=== PATIENT | female | born 1935 | race Caucasian/White ===

== ENCOUNTER 2018-06-04 23:33 | Inpatient (IN) ==
[2018-06-05] MEDS ORDERED: ASPIRIN CHEW 324 MG PO STA (00:46)
[2018-06-05] MEDS ORDERED: ONDANSETRON INJ 2 MG/ML 2 ML VIAL IV STA (00:46)
[2018-06-05] MEDS ORDERED: METOPROLOL TARTRATE 1 MG/ML VIAL IV PRN (00:47)
[2018-06-05 01:32] LABS: Basophils # (auto) 0.02 K/uL (0-0.2); Basophils % (auto) 0.2 %; Eosinophils # (auto) 0.03 K/uL (0-0.5); Eosinophils % (auto) 0.3 %; Hematocrit (blood only) 39.1 % (37-47); Hemoglobin 12.2 g/dL (12.0-16.0); Immature Granulocytes # (auto) 0.01 K/uL (0.00-0.02); Immature Granulocytes % (auto) 0.1 %; Lymphocytes % (auto) 7.8 %; Mean Corpuscular Hgb Conc 31.2 g/dL (32-36); Mean Corpuscular Volume 93.5 fL (80-100); Mean Platelet Volume 10.7 fL (7.4-10.4); Monocytes # (auto) 0.44 K/uL (0.11-0.59); Monocytes % (auto) 4.9 %; Neutrophils % (auto) 86.7 %; Platelet Count 175 K/uL (130-400); RDW Coefficient of Variation 14.4 % (11.5-14.5); Red Blood Count 4.18 M/uL (4.2-5.4)
[2018-06-05 01:40] LABS: INR 2.2 (0.9-1.1); Partial Thromboplastin Ratio 1.2; Partial Thromboplastin Time 30.6 Seconds (21.0-31.0); Prothrombin Time 20.8 Seconds (9.0-12.0)
[2018-06-05 01:50] LABS: Albumin Level 3.6 gm/dl (3.4-5.0); BUN Creatinine Ratio 12.2 (10-20); Calcium 8.9 mg/dl (8.5-10.1); Creatinine Clr Calc Pharmacy 29.8 ml/min; Est GFR (African American) 47.6; Est GFR (Non-African American) 41.1; Potassium 3.6 mmol/L (3.5-5.1)
[2018-06-05 01:55] LABS: Albumin Globulin Ratio 0.9 (0.9-2); Globulin 3.8 gm/dl (2.5-4.0); Total Protein 7.4 gm/dl (6.4-8.2); Troponin I 0.018 ng/ml (0-0.045)
[2018-06-05] MEDS ORDERED: POTASSIUM CHLORIDE 20 MEQ TABCR PO STA (03:26)
[2018-06-05] MEDS ORDERED: POTASSIUM CHLORIDE 10 MEQ TABCR PO ONE (03:31)
[2018-06-05] MEDS ORDERED: METOPROLOL TARTRATE 50 MG TAB PO SCH (03:50)
[2018-06-05 04:02] LABS: Magnesium 2.3 mg/dl (1.8-2.4)
--- NOTE | 2018-06-05 04:36 | History & Physical Report ---
Date of Service June 05, 2018 Assessment & Plan (1) Epigastric abdominal pain: Rule out cholecystitis with prominent gallbladder description on initial CT read Rule out UTI with bladder wall thickening finding on initial CT read Rapid A. 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 fib Facilitate home beta-roman, may need titration Gallbladder ultrasound RE rule out cholecystitis Check UA TTE RE pericardial effusion on CT Further management pending above workup results. Check hemoglobin A1c DVT prophylaxis. SCDs while Coumadin on hold if INR less than 2 Full code Patient's requesting for updates from providers. Mr. Adebayo Casas, contact #[phone]. History of Present Illness Chief Complaint: Abdominal pain Primary Care Provider: Delia Marquez, History obtained from patient, family, and records. Medical history significant for SSS sp PPM on Coumadin, chronic diastolic heart failure EF 50-54% TTE 2017, hypertension, hyperlipidemia, GERD, mood disorder, CRI baseline creatinine 1.2-1.3. Recent confinement April 2017 under Cardiology service for pacemaker placement for sick sinus syndrome. Patient noted achy epigastric discomfort with nausea last night. No emesis, good bowel movement. Patient denies dysuria symptoms. Patient denies chest pain. Usual SOB on exertion symptoms. At the ER, patient noted to be in rapid atrial flutter. Patient given IV Metoprolol at the ER. 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 Allergies Allergy/AdvReac Type Severity Reaction Status Date / Time Sulfa (Sulfonamide Allergy Mild HIVES Verified 06/05/18 03:41 Antibiotics) Home Medications Home Medications Medication Instructions Recorded Confirmed Type alendronate [Fosamax] 70 mg PO WK 06/05/18 06/05/18 History atorvastatin 20 mg PO DAILY 06/05/18 06/05/18 History calcium carbonate [Calcium 600] 600 mg PO DAILY 06/05/18 06/05/18 History cholecalciferol (vitamin D3) 2,000 unit PO DAILY 06/05/18 06/05/18 History [Vitamin D3] furosemide 40 mg PO BID 06/05/18 06/05/18 History levothyroxine 25 mcg PO 4XWK 06/05/18 06/05/18 History levothyroxine 50 mcg PO 3XWK 06/05/18 06/05/18 History liothyronine 5 mcg PO BID 06/05/18 06/05/18 History lisinopril 20 mg PO DAILY 06/05/18 06/05/18 History metoprolol tartrate 50 mg PO QPM 06/05/18 06/05/18 History metoprolol tartrate 75 mg PO QAM 06/05/18 06/05/18 History omeprazole 20 mg PO DAILY 06/05/18 06/05/18 History sertraline 25 mg PO DAILY 06/05/18 06/05/18 History warfarin 2.5 mg PO 4XWK 06/05/18 06/05/18 History warfarin [Coumadin] 5 mg PO 3XWK 06/05/18 06/05/18 History Past Med/Surg History Medical History Tachy-césar syndrome Atrial fibrillation and flutter Family History Other Family history non-contributory Social History Current Living Situation: Spouse Other Information That Helps Us Care for You: No Feels Safe at Home: Yes Smoking Status: Never smoker Hx Alcohol Use: Yes Alcohol type: wine Alcohol Intake Frequency: a few times a month Hx Substance Use: No Beliefs That Will Affect Care: None Communication Ability: Effective [place] Operator Required: No Review of Systems As per HPI, all 10 systems reviewed, all other ROS negative Physical Exam 2 Vital Signs (Past 24 Hours): Last Vital Signs Temp 36.5 C 06/04/18 23:51 Pulse 108 H 06/05/18 04:29 Resp 18 06/05/18 04:29 BP 140/97 06/05/18 04:29 Pulse Ox 93 06/05/18 04:29 Physical Exam: GENERAL: Comfortable slightly anxious, tremulous, obese no respiratory distress SKIN: Normal color, warm HEENT: [place] palpebral conjunctivae, no ptosis, dry buccal mucosa NECK : Supple, short neck, no tenderness CHEST : Decreased breath sounds , no tenderness HEART : Tachycardic, systolic murmur ABDOMEN: Some distention, epigastric tenderness EXTREMITIES : min LE swelling, no LE tenderness, no other conspicuous deformities noted NEUROLOGIC : Coherent but slightly hard of hearing, no facial asymmetry, chronic rest tremors Results & Data Laboratory Results Laboratory Results WBC 9.00 K/uL (4.8-10.8) 06/05/18 01:20 RBC 4.18 M/uL (4.2-5.4) L 06/05/18 01:20 Hgb 12.2 g/dL (12.0-16.0) 06/05/18 01:20 Hct 39.1 % (37-47) 06/05/18 01:20 MCV 93.5 fL (80-100) 06/05/18 01:20 MCH 29.2 pg (25-34) 06/05/18 01:20 MCHC 31.2 g/dL (32-36) L 06/05/18 01:20 RDW Std Deviation 49.0 fL (36.4-46.3) H 06/05/18 01:20 RDW [place] 14.4 % (11.5-14.5) 06/05/18 01:20 Plt Count 175 K/uL (130-400) 06/05/18 01:20 MPV 10.7 fL (7.4-10.4) H 06/05/18 01:20 Immature Gran % (Auto) 0.1 % 06/05/18 01:20 Neut % (Auto) 86.7 % 06/05/18 01:20 Lymph % (Auto) 7.8 % 06/05/18 01:20 [place] % (Auto) 4.9 % 06/05/18 01:20 Eos % (Auto) 0.3 % 06/05/18 01:20 Baso % (Auto) 0.2 % 06/05/18 01:20 Immature Gran # (Auto) 0.01 K/uL (0.00-0.02) 06/05/18 01:20 Neut # (Auto) 7.80 K/uL (1.4-6.5) H 06/05/18 01:20 Lymph # (Auto) 0.70 K/uL (1.2-3.4) L 06/05/18 01:20 [place] # (Auto) 0.44 K/uL (0.11-0.59) 06/05/18 01:20 Eos # (Auto) 0.03 K/uL (0-0.5) 06/05/18 01:20 Baso # (Auto) 0.02 K/uL (0-0.2) 06/05/18 01:20 PT 20.8 Seconds (9.0-12.0) H 06/05/18 01:20 INR 2.2 (0.9-1.1) H 06/05/18 01:20 APTT 30.6 Seconds (21.0-31.0) 06/05/18 01:20 PTT Ratio 1.2 06/05/18 01:20 Sodium 137 mmol/L (136-145) 06/05/18 01:20 Potassium 3.6 mmol/L (3.5-5.1) 06/05/18 01:20 Chloride 98 mmol/L (98-107) 06/05/18 01:20 Carbon Dioxide 32 mmol/L (21-32) 06/05/18 01:20 Anion Gap 7.0 (3-11) 06/05/18 01:20 BUN 15 mg/dl (7-18) 06/05/18 01:20 Creatinine 1.21 mg/dl (0.6-1.2) H 06/05/18 01:20 Est Cr Clr Drug Dosing 29.8 ml/min 06/05/18 01:20 Est GFR ( Amer) 47.6 06/05/18 01:20 Est GFR (Non-Af Amer) 41.1 06/05/18 01:20 BUN/Creatinine Ratio 12.2 (10-20) 06/05/18 01:20 Glucose 181 mg/dl (70-99) H 06/05/18 01:20 Calcium 8.9 mg/dl (8.5-10.1) 06/05/18 01:20 Magnesium 2.3 mg/dl (1.8-2.4) 06/05/18 01:20 Total Bilirubin 2.0 mg/dl (0.2-1) H 06/05/18 01:20 AST 86 U/L (15-37) H 06/05/18 01:20 ALT 39 U/L (12-78) 06/05/18 01:20 Alkaline Phosphatase 86 U/L (45-117) 06/05/18 01:20 Troponin I 0.018 ng/ml (0-0.045) 06/05/18 01:20 Total Protein 7.4 gm/dl (6.4-8.2) 06/05/18 01:20 Albumin 3.6 gm/dl (3.4-5.0) 06/05/18 01:20 Globulin 3.8 gm/dl (2.5-4.0) 06/05/18 01:20 Albumin/Globulin Ratio 0.9 (0.9-2) 06/05/18 01:20 Lipase 181 U/L (73-393) 06/05/18 01:20 TSH 0.936 uIu/ml (0.300-4.500) 06/05/18 01:20 Diagnostic Findings Chest x-ray as per my interpretation: Cardiomegaly EKG as per my interpretation : Rate 115, atrial flutter, LAD, LAFB, ST depression lateral leads CT abdomen pelvis initial read: Small left pleural effusion, atelectasis, small pericardial effusion, cardiomegaly. Posterior hernia appears to be chronic but metallic type. Prominent gallbladder. No radiopaque stones. Fatty infiltration of the pancreas. Multiple cysts mid pole of the left kidney. Bladder wall thickening.
[2018-06-05] MEDS ORDERED: METOPROLOL TARTRATE 1 MG/ML VIAL IV STA (05:56)
[2018-06-05] MEDS ORDERED: ACETAMINOPHEN 325 MG TAB PO PRN ×2 (05:59)
[2018-06-05] MEDS ORDERED: TRAMADOL HCL 50 MG TABLET PO PRN (05:59)
[2018-06-05] MEDS ORDERED: PROCHLORPERAZINE 5 MG in SYRINGE 4 ML IV PRN (05:59)
[2018-06-05] MEDS ORDERED: NITROGLYCERIN SL 0.4 MG/TAB TAB SL PRN (05:59)
[2018-06-05] MEDS ORDERED: LORazepam 0.25 MG/0.5 ML VIAL IV PRN (05:59)
[2018-06-05] MEDS ORDERED: HYDROmorphone INJ 0.5 MG/0.5 ML SYR IV PRN (05:59)
[2018-06-05] MEDS ORDERED: NSS + 20MEQ KCL 20 MEQ/1,000 ML BAG IV SCH (06:15)
[2018-06-05] MEDS ORDERED: LEVOTHYROXINE SODIUM 50 MCG TABLET PO SCH (06:30)
--- NOTE | 2018-06-05 06:39 | XRay Report ---
XR chest 1V portable HISTORY: 83 years-old Female Chest Pain acute atypical chest pain COMPARISON: CT abdomen and pelvis of same day, chest radiograph 06/13/2012 TECHNIQUE: Portable AP view of the chest FINDINGS: Cardiac silhouette is moderately enlarged. Single lead left subclavian pacer is noted overlying the e xpected location of the right atrium. Calcification the thoracic aortic arch. No pneumothorax or over t pulmonary edema. Small left pleural effusion with left basilar airspace opacities. Moderate sized h iatal hernia. Degenerative changes of the shoulders and spine. IMPRESSION: 1. Moderate cardiomegaly without overt pulmonary edema. 2. Small left pleural effusion with left basilar opacities favoring atelectasis with pneumonitis felt to be less likely. 3. Moderate sized hiatal hernia. The above report was generated using voice recognition software. It may contain grammatical, syntax o r spelling errors. Electronically signed by: Yfn Key M.D. 06/05/2018 6:37 AM
[2018-06-05 06:45] LABS: Estimated Average Glucose 134 mg/dl
--- NOTE | 2018-06-05 07:14 | Emergency Department Note ---
Entered by Kodak Mayer acting as a scribe for History of Present Illness General Chief complaint: Illness Source: patient History of Present Illness Provider complaint: Abdominal pain Onset (ago): hour(s) (This morning) Location: abdomen Radiation: non-radiation Pain Consistency: + now resolved Relieved By: + none Exacerbated By: + none Associated symptoms: + loss of appetite; no nausea/vomiting The patient is a 83 year old female who presents to the Emergency Room with complaints of epigastric abdominal pain that started this morning but has since resolved. She states the pain was present until she was in the ambulance where she received oxygen. She is not normally on any oxygen at baseline. Throughout the day the pain has caused her to lose her appetite but she denies any vomiting. She does have a history of Afib/flutter for which she takes Warfarin. She also takes Metoprolol and has had her dosage increased recently from 1 pill every morning and night to 1.5 pills BID. Home Medications Home Medications Medication Instructions Recorded Confirmed Type alendronate [Fosamax] 70 mg PO WK 06/05/18 06/05/18 History atorvastatin 20 mg PO DAILY 06/05/18 06/05/18 History calcium carbonate [Calcium 600] 600 mg PO DAILY 06/05/18 06/05/18 History cholecalciferol (vitamin D3) 2,000 unit PO DAILY 06/05/18 06/05/18 History [Vitamin D3] furosemide 40 mg PO BID 06/05/18 06/05/18 History levothyroxine 25 mcg PO 4XWK 06/05/18 06/05/18 History levothyroxine 50 mcg PO 3XWK 06/05/18 06/05/18 History liothyronine 5 mcg PO BID 06/05/18 06/05/18 History lisinopril 20 mg PO DAILY 06/05/18 06/05/18 History metoprolol tartrate 50 mg PO QPM 06/05/18 06/05/18 History metoprolol tartrate 75 mg PO QAM 06/05/18 06/05/18 History omeprazole 20 mg PO DAILY 06/05/18 06/05/18 History sertraline 25 mg PO DAILY 06/05/18 06/05/18 History warfarin 2.5 mg PO 4XWK 06/05/18 06/05/18 History warfarin [Coumadin] 5 mg PO 3XWK 06/05/18 06/05/18 History Allergies Allergy/AdvReac Type Severity Reaction Status Date / Time Sulfa (Sulfonamide Allergy Mild HIVES Verified 06/05/18 03:41 Antibiotics) Past Med/Surg History Medical History Tachy-césar syndrome Atrial fibrillation and flutter Family History Other Family history non-contributory Social History Current Living Situation: Spouse Other Information That Helps Us Care for You: No Feels Safe at Home: Yes Smoking Status: Never smoker Hx Alcohol Use: Yes Alcohol type: wine Alcohol Intake Frequency: a few times a month Hx Substance Use: No Beliefs That Will Affect Care: None Communication Ability: Effective [place] Agent Required: No Review of Systems See HPI for pertinent positives & negatives. and A total of 10 systems reviewed and were otherwise negative Physical Exam Vital Signs Vital Signs - 24 hr 06/04/18 23:51 06/05/18 00:54 06/05/18 01:23 Temperature 36.5 C Temperature Source Axillary Sepsis Recent Fever Within 48 Hours No Sepsis New/Unexplained Change in Mental Status No Sepsis Action Taken by Nursing No Action Required Pulse Rate 127 H 104 H Pulse Rate [Right Finger] 103 H Pulse Rhythm Pulse Rhythm [Right Finger] Pulse Strength [Right Finger] Respiratory Rate 31 H 22 Respiratory Effort / Characteristics Respiratory Depth Normal Respiratory Pattern Regular Blood Pressure 132/98 132/68 Blood Pressure [Left Arm] 131/88 Blood Pressure Mean 109 Blood Pressure Mean [Left Arm] 102 Blood Pressure Position [Left Arm] Pulse Oximetry 98 93 Oxygen Delivery Method Room Air 06/05/18 02:00 06/05/18 02:38 06/05/18 03:37 Temperature Temperature Source Sepsis Recent Fever Within 48 Hours Sepsis New/Unexplained Change in Mental Status Sepsis Action Taken by Nursing Pulse Rate 107 H Pulse Rate [Right Finger] 92 H 99 H 101 H Pulse Rhythm Regular Pulse Rhythm [Right Finger] Pulse Strength [Right Finger] Respiratory Rate 19 19 18 Respiratory Effort / Characteristics Respiratory Depth Respiratory Pattern Blood Pressure Blood Pressure [Left Arm] 115/72 128/86 151/97 H Blood Pressure Mean Blood Pressure Mean [Left Arm] 86 100 115 Blood Pressure Position [Left Arm] Pulse Oximetry 98 99 100 Oxygen Delivery Method Room Air Room Air 06/05/18 04:29 06/05/18 05:41 Temperature 36.9 C Temperature Source Oral Sepsis Recent Fever Within 48 Hours Sepsis New/Unexplained Change in Mental Status Sepsis Action Taken by Nursing Pulse Rate Pulse Rate [Right Finger] 108 H 111 H Pulse Rhythm Pulse Rhythm [Right Finger] Irregular Pulse Strength [Right Finger] Normal Respiratory Rate 18 22 Respiratory Effort / Characteristics Non-Labored Spontaneous SOB on Exertion Respiratory Depth Normal Respiratory Pattern Regular Blood Pressure Blood Pressure [Left Arm] 140/97 149/100 H Blood Pressure Mean Blood Pressure Mean [Left Arm] 111 116 Blood Pressure Position [Left Arm] Lying Pulse Oximetry 93 96 Oxygen Delivery Method Room Air Room Air Vital signs reviewed. General: Well-appearing 83 year old female, in no significant distress. HEENT: No scleral icterus, PERRLA, neck supple. Atraumatic. Cardiovascular: Tachycardic rate and irregular rhythm, no extra sounds. Pulmonary: Clear to auscultation bilaterally, normal work of breathing. Abdomen: Soft, nontender, nondistended, positive bowel sounds. Musculoskeletal: Atraumatic, no peripheral edema. Neurologic: Patient awake alert and oriented x 3, full strength in all 4 extremities. Facial muscles are symmetric Skin: Warm, dry, no rash Course 0038: Past medical records reviewed. The patient was evaluated in room A04B, and a complete history and physical examination were performed. 0323: I spoke to Dr. Hermilo Walsh about the patient's case and he is going to accept her for further evaluation. Consultations Consultation #1: I spoke to Dr. Hermilo Walsh about the patient 's case and he is going to accept her for further evaluation. Time: 03:23 Administered Medications Potassium Chloride/Sodium Chloride (Normal Saline W/20 Meq Kcl) 20 meq in 1, 000 mls @ 60 mls/hr IV .[id number] [facility] Stop: 07/05/18 06:14 Last Admin: 06/05/18 06:33 Dose: 60 mls/hr Levothyroxine Sodium (Synthroid) 50 mcg PO [id number] WILLA Stop: 07/05/18 06:29 Last Admin: 06/05/18 06:33 Dose: Not Given Discontinued Medications Aspirin (Aspirin) 324 mg PO NOW STA Stop: 06/05/18 00:47 Last Admin: 06/05/18 00:54 Dose: 324 mg Metoprolol Tartrate (Lopressor) 5 mg IV Q5M PRN PRN Reason: Tachycardia Stop: 07/05/18 00:46 Last Admin: 06/05/18 00:54 Dose: 5 mg Metoprolol Tartrate (Lopressor) 75 mg PO QAM WILLA Stop: 07/05/18 03:49 Last Admin: 06/05/18 04:31 Dose: 75 mg Metoprolol Tartrate (Lopressor) 2.5 mg IV NOW STA Stop: 06/05/18 05:57 Last Admin: 06/05/18 06:20 Dose: 2.5 mg Ondansetron HCl (Zofran) 4 mg IV NOW Stop: 06/05/18 00:47 Last Admin: 06/05/18 00:54 Dose: 4 mg Potassium Chloride (Klor-Con M20) 40 meq PO NOW STA Stop: 06/05/18 03:27 Last Admin: 06/05/18 03:35 Dose: 40 meq Potassium Chloride (Klor-Con M10) Confirm Administered Dose 40 meq PO .STBella Pictures-MED ONE Stop: 06/05/18 03:32 Last Admin: 06/05/18 03:35 Dose: Not Given Medical Decision Making Differential Diagnosis Differential diagnosis includes etiologies such as premature contractions, electrolyte abnormality, cardiac dysrhythmia, thyroid dysfunction, pulmonary embolism, infection, gastrointestinal, as well as others were entertained. Medical Records Attestation: I reviewed the patient's medical records. Home Medications Current Medication List: was personally reviewed by me Laboratory Data Attestation: I reviewed the patient's lab results. Result diagrams: 06/05/18 01:20 06/05/18 01:20 Lab Results 06/05/18 06/05/18 06/05/18 Range/Units 01:20 01:20 01:20 WBC 9.00 (4.8-10.8) K/uL RBC 4.18 L (4.2-5.4) M/uL Hgb 12.2 (12.0-16.0) g/dL Hct 39.1 (37-47) % MCV 93.5 (80-100) fL MCH 29.2 (25-34) pg MCHC 31.2 L (32-36) g/dL RDW Std Deviation 49.0 H (36.4-46.3) fL RDW [place] 14.4 (11.5-14.5) % Plt Count 175 (130-400) K/uL MPV 10.7 H (7.4-10.4) fL Immature Gran % (Auto) 0.1 % Neut % (Auto) 86.7 % Lymph % (Auto) 7.8 % [place] % (Auto) 4.9 % Eos % (Auto) 0.3 % Baso % (Auto) 0.2 % Immature Gran # (Auto) 0.01 (0.00-0.02) K/uL Neut # (Auto) 7.80 H (1.4-6.5) K/uL Lymph # (Auto) 0.70 L (1.2-3.4) K/uL [place] # (Auto) 0.44 (0.11-0.59) K/uL Eos # (Auto) 0.03 (0-0.5) K/uL Baso # (Auto) 0.02 (0-0.2) K/uL PT 20.8 H (9.0-12.0) Seconds INR 2.2 H (0.9-1.1) APTT 30.6 (21.0-31.0) Seconds PTT Ratio 1.2 Sodium 137 (136-145) mmol/L Potassium 3.6 (3.5-5.1) mmol/L Chloride 98 (98-107) mmol/L Carbon Dioxide 32 (21-32) mmol/L Anion Gap 7.0 (3-11) BUN 15 (7-18) mg/dl Creatinine 1.21 H (0.6-1.2) mg/dl Est Cr Clr Drug Dosing 29.8 ml/min Est GFR ( Amer) 47.6 Est GFR (Non-Af Amer) 41.1 BUN/Creatinine Ratio 12.2 (10-20) Glucose 181 H (70-99) mg/dl Estimat Average Glucose mg/dl Hemoglobin A1c (4.5-5.6) % Calcium 8.9 (8.5-10.1) mg/dl Magnesium 2.3 (1.8-2.4) mg/dl Total Bilirubin 2.0 H (0.2-1) mg/dl AST 86 H (15-37) U/L ALT 39 (12-78) U/L Alkaline Phosphatase 86 (45-117) U/L Troponin I 0.018 (0-0.045) ng/ml Total Protein 7.4 (6.4-8.2) gm/dl Albumin 3.6 (3.4-5.0) gm/dl Globulin 3.8 (2.5-4.0) gm/dl Albumin/Globulin Ratio 0.9 (0.9-2) Lipase 181 (73-393) U/L TSH 0.936 (0.300-4.500) uIu/ml 06/05/18 Range/Units 01:20 WBC (4.8-10.8) K/uL RBC (4.2-5.4) M/uL Hgb (12.0-16.0) g/dL Hct (37-47) % MCV (80-100) fL MCH (25-34) pg MCHC (32-36) g/dL RDW Std Deviation (36.4-46.3) fL RDW [place]eff [place] (11.5-14.5) % Plt Count (130-400) K/uL MPV (7.4-10.4) fL Immature Gran % (Auto) % Neut % (Auto) % Lymph % (Auto) % [place] % (Auto) % Eos % (Auto) % Baso % (Auto) % Immature Gran # (Auto) (0.00-0.02) K/uL Neut # (Auto) (1.4-6.5) K/uL Lymph # (Auto) (1.2-3.4) K/uL [place] # (Auto) (0.11-0.59) K/uL Eos # (Auto) (0-0.5) K/uL Baso # (Auto) (0-0.2) K/uL PT (9.0-12.0) Seconds INR (0.9-1.1) APTT (21.0-31.0) Seconds PTT Ratio Sodium (136-145) mmol/L Potassium (3.5-5.1) mmol/L Chloride (98-107) mmol/L Carbon Dioxide (21-32) mmol/L Anion Gap (3-11) BUN (7-18) mg/dl Creatinine (0.6-1.2) mg/dl Est Cr Clr Drug Dosing ml/min Est GFR ( Amer) Est GFR (Non-Af Amer) BUN/Creatinine Ratio (10-20) Glucose (70-99) mg/dl Estimat Average Glucose 134 mg/dl Hemoglobin A1c 6.3 H (4.5-5.6) % Calcium (8.5-10.1) mg/dl Magnesium (1.8-2.4) mg/dl Total Bilirubin (0.2-1) mg/dl AST (15-37) U/L ALT (12-78) U/L Alkaline Phosphatase (45-117) U/L Troponin I (0-0.045) ng/ml Total Protein (6.4-8.2) gm/dl Albumin (3.4-5.0) gm/dl Globulin (2.5-4.0) gm/dl Albumin/Globulin Ratio (0.9-2) Lipase (73-393) U/L TSH (0.300-4.500) uIu/ml Imaging Data Attestation: I personally reviewed and interpreted this imaging study as follows : My Impression: Xray Chest 2V: Pacemaker in place, no focal lung consolidation, no failure, large hiatal hernia noted. ECG Data Attestation: I personally reviewed and interpreted this ECG as follows: Indication: palpitations Rate (beats per minute): 114 Rhythm: atrial fibrillation (/Flutter) Findings: + other (Likely previous anterolateral infarct, QTc 476) and + left axis deviation; no acute ischemic change Blood Pressure Blood Pressure Findings: Elevated blood pressure Blood Pressure Disposition: further management by hospitalist [facility] Narrative This patient was evaluated and appeared to be in no significant distress. IV access was obtained and laboratory work was drawn. The patient was placed on the monitor car operator. Patient is found to be in atrial fibrillation, slightly tachycardic. I suspect the etiology of the patient's epigastric pain is cardiac related. Patient's troponin is 0.018. EKG reveals rapid atrial fibrillation 114 bpm. [address] is no ST change indicative of acute IA. She was given metoprolol 5 mg IV for rate control. She is also given aspirin 324 mg p.o. Given the patient's advanced age and cardiac risk factors, she will be evaluated by the hospitalist service for further management. Impression & Plan Epigastric abdominal pain, Atrial fibrillation, rapid Discharge Plan Visit Data *Final* Discharge Date/Time: 06/05/18 04:54 Chief Complaint: Illness Other Complaint: Nausea ED Provider: Jacqueline Rodriguez Discharge Problem: Epigastric abdominal pain, Atrial fibrillation, rapid Patient Disposition: Admitted As Inpatient Discharge Instructions Interventions: ED Discharge Assessment Last Done: 06/05/18 04:54 The scribe's documentation has been prepared under my direction and personally reviewed by me in its entirety. I confirm that the note above accurately reflects all work, treatment, procedures, and medical decision making performed by me.
--- NOTE | 2018-06-05 08:09 | CT Scan Report ---
CT abd pelvis wo con CLINICAL HISTORY: 83 years-old Female presenting with abd pain. TECHNIQUE: Multidetector CT of the abdomen and pelvis was performed without the use of intravenous co ntrast. IV contrast: None. A dose lowering technique was used consistent with the principles of ALARA (as low as reasonably achievable). COMPARISON: None. CT DOSE (mGy.cm): The estimated cumulative dose is 985.96 mGy.cm. FINDINGS: Network Engineering Advisor topogram: Single lead pacer lead to the right ventricular apex. Cardiomegaly. Lung bases: Bandlike opacities in the deep portions of the left lower lobe, likely passive atelectasi s in the setting of the small left pleural effusion, which is grossly simple appearing. Aortic valve and mitral annular calcification. Multichamber enlargement of the heart, which is primarily biatrial. Partially visualized pacer lead to the right ventricular apex. Small pericardial effusion. Liver: Normal morphology. Density borderline for hepatic steatosis. Biliary: No intrahepatic or extrahepatic biliary ductal dilatation. Physiologic distention of the gal lbladder. Motion artifact in the upper abdomen degraded evaluation of the gallbladder wall. Allowing for this, there is suggestion of mild gallbladder wall thickening. No pericholecystic fluid or inflam matory change. No convincing evidence of tension. Pancreas: Moderate parenchymal atrophy. Spleen: Normal noncontrast appearance. Adrenal glands: Normal noncontrast appearance. Kidneys and ureters: Bilateral cortical thinning suggested. No nephrolithiasis or hydronephrosis. Mil d bilateral pelviectasis with suggestion of subtle urothelial thickening bilaterally. Nonspecific mil d perinephric fat infiltration. Ureters nondistended. Bladder: Circumferential bladder wall thickening. Pelvic organs: Normal noncontrast appearance. Calcification noted in the paraovarian and parauterine vasculature. Focus of calcification noted in the right ovary, likely degenerative in etiology. Bowel: Traction on the splenic flexure of the colon is evident with minimal involvement of the spleni c flexure in the large hiatal hernia. The appendix is normal and atrophic. No bowel obstruction. Larg e hiatal hernia as mentioned. Hyperdense material in the gastric lumen (series 3 image 41). No convin cing evidence of obstruction of the gastric outlet. Peritoneal cavity: No free fluid or intraperitoneal gas. Lymph nodes: No gross lymphadenopathy allowing for noncontrast technique. Vasculature: Atherosclerosis of the normal caliber abdominal aorta. Abdominal wall: Diastasis of the rectus abdominis. Musculoskeletal: Degenerative changes of the spine. Posttraumatic deformity of the bilateral superior and inferior pubic rami. Osteopenia. Compression deformity of L2 with less than 50% anterior vertebr al body height loss. IMPRESSION: 1. Large hiatal hernia. No evidence of gastric outlet obstruction, however, significant hyperdense m aterial in the gastric lumen may suggest the presence of a pharmacobezoar. 2. Physiologic distention of the gallbladder though possible wall thickening may be present. Motion artifact in the upper abdomen degrading evaluation. Consider right upper quadrant ultrasound if there is right upper quadrant pain. 3. Circumference of bladder wall thickening with subtle urothelial thickening in the upper tracts parks ggested. This raises concern for cystitis, most likely infectious. Correlate with urinalysis. 4. Compression fracture of L2, which is age-indeterminate. Correlate with point tenderness. 5. Small left pleural effusion with passive atelectasis. 6. Biatrial enlargement of the heart. 7. Small pericardial effusion. Electronically signed by: Griffin Davis M.D. 06/05/2018 8:08 AM
--- NOTE | 2018-06-05 08:43 | Ultrasound Report ---
US gallbladder HISTORY: 83 years-old Female abd pain acute right upper quadrant abdominal pain COMPARISON: CT abdomen and pelvis of same day TECHNIQUE: Multiple real-time sonographic images of the abdominal right upper quadrant were obtained assessing grayscale appearance and color flow FINDINGS: Limited study secondary to patient body habitus and patient inability to breath-hold during the study . Visualized pancreas is unremarkable. Liver imaging is no focal mass or intrahepatic biliary ductal di lation. Minimal shadowing cholelithiasis is noted along with mild gallbladder wall thickening measuri ng up to 4 mm. No pericholecystic fluid and the sonographic Marin sign was reported as negative. Com mon bile duct is normal, 5 mm. Imaged right kidney is unremarkable without hydronephrosis. IMPRESSION: 1. Cholelithiasis and mild gallbladder wall thickening is noted without pericholecystic fluid or posi tive sonographic Marin's sign. These findings are equivocal for acute cholecystitis. Correlation wit h clinical exam and laboratory analysis recommended. 2. No biliary ductal dilation. The above report was generated using voice recognition software. It may contain grammatical, syntax o r spelling errors. Electronically signed by: Yfn Key M.D. 06/05/2018 8:42 AM
[2018-06-05] MEDS: PANTOprazole 40 MG TAB PO SCH (09:05)
[2018-06-05] MEDS: SERTRALINE HCL 50 MG TABLET PO SCH (09:05)
[2018-06-05] MEDS: ATORVASTATIN 20 MG TAB PO SCH (09:05)
[2018-06-05] MEDS: LISINOPRIL 20 MG TAB PO SCH (09:05)
[2018-06-05] MEDS: LIOTHYRONINE SODIUM 5 MCG TAB PO SCH ×2 (09:06→20:16)
--- NOTE | 2018-06-05 16:36 | Hospitalist Progress Note ---
Date of Service June 05, 2018 Assessment & Plan (1) Hypoxia: She is therapeutic on warfarin and smaller risk for PE. She has serial negative troponins.Uncertain cause at this time. Cont oxygen supplementation now. (2) Epigastric abdominal pain: Clinically, the patient's abdominal pain resolved prior to arrival on the ER. I believe she was admitted for the RVR issue. She has been NPO all day but has not had a return of pain. UA sample has not been able to be collected. We are having to perform an in/out cath for sample.US results were reviewed with the general surgeon director of graduate admissions, and the clinical picture was not consistent with acute cholecystitis. She also had a finding on her CT of a possible bezoar , but denied any projectile vomiting. We decided to feed her and see if the pain returned. A diet was started and IVF stopped. UA sample pending. It is interesting that she felt better once the suppleental oxygen was placed on her face in the ambulance. She does have a h/o severe pulmonary hypertension. Possible etiologies include but are not limted to hypoxia 2/2 this, symptomatic atrial fibrillation with RVR, or symptomatic hiatal hernia. Still need to rule out UTI as above. Lipase is normal. (3) Atrial fibrillation, rapid: Afib with RVR. Pt has been tachy for a while now, not just acutely. She recently had an increase in her metoprolol as an outpatient as a result of this. Suspect a more chronic issue as no clear acute infection or other reason is present. Rate is more controlled today after reinstitution of the metoprolol 75mg PO BID. Troponin trended x 2 and was negative. TTE with some changes compared to prior TTE in 2017 and small pericardial effusion present. Cont to monitor. (4) Diastolic heart failure: chronic, euvolemic. Stop IVF and cont BID Lasix per home regimen. (5) HTN (hypertension): Controlled, cont Lisinopril 20mg PO daily (6) CKD (chronic kidney disease), stage III: at baseline. Cont to monitor periodically. (7) DVT prophylaxis: warfarin Full Code Dispo-cont to monitor on telemetry overnight. Subjective 83 yo F with one day of epigatric pain that was continuous. The pain was not better or worse with food Denies any pain today. Denies fevers ,UTI symptoms, chills, or other symptoms at this time. Physical Exam 2 Vital Signs (Past 24 Hours): Last Vital Signs Temp 36.6 C 06/05/18 15:59 Pulse 94 H 06/05/18 15:59 Resp 20 06/05/18 15:59 BP 132/85 06/05/18 15:59 Pulse Ox 99 06/05/18 15:59 GENERAL: NAD SKIN: warm and dry HEENT: MMM NECK : Supple, no tenderness CHEST : Decreased breath sounds , no tenderness HEART : Tachycardic, systolic murmur ABDOMEN: NTND, soft, +BS EXTREMITIES : no edema NEUROLOGIC : Coherent but slightly hard of hearing, no facial asymmetry, chronic rest tremors Results & Data Laboratory Results Short CBC 06/05/18 Range/Units 01:20 WBC 9.00 (4.8-10.8) K/uL Hgb 12.2 (12.0-16.0) g/dL Hct 39.1 (37-47) % Plt Count 175 (130-400) K/uL BMP 06/05/18 01:20 Sodium 137 Potassium 3.6 Chloride 98 Carbon Dioxide 32 BUN 15 Creatinine 1.21 H Glucose 181 H Calcium 8.9 Cardiac Enzymes 06/05/18 06/05/18 Range/Units 01:20 09:43 Troponin I 0.018 0.017 (0-0.045) ng/ml Liver Function 06/05/18 Range/Units 01:20 Total Bilirubin 2.0 H (0.2-1) mg/dl AST 86 H (15-37) U/L ALT 39 (12-78) U/L Alkaline Phosphatase 86 (45-117) U/L Albumin 3.6 (3.4-5.0) gm/dl Medications Administered Current Inpatient Medications Acetaminophen (Tylenol) 650 mg PO Q4H PRN PRN Reason: Pain or Fever Stop: 07/05/18 05:58 Acetaminophen (Tylenol) 325 mg PO Q6H PRN PRN Reason: Pain or Fever Stop: 07/05/18 05:58 Atorvastatin Calcium (Lipitor) 20 mg PO DAILY WILLA Stop: 07/05/18 08:59 Last Admin: 06/05/18 09:05 Dose: 20 mg Furosemide (Lasix) 40 mg PO [id number] WILLA Stop: 07/05/18 20:59 Last Admin: 06/05/18 20:15 Dose: 40 mg Hydromorphone HCl (Dilaudid) 0.5 mg IV Q3H PRN PRN Reason: Pain Stop: 06/19/18 05:58 Lorazepam (Ativan) 0.25 mg in 0.5 mls @ 0.5 mls/min IV Q4H PRN PRN Reason: Anxiety/Agitation Stop: 07/05/18 05:58 Levothyroxine Sodium (Synthroid) 50 mcg PO [id number]@0630 [facility] Stop: 07/05/18 06:29 Last Admin: 06/05/18 06:33 Dose: Not Given Levothyroxine Sodium (Synthroid) 25 mcg PO SuTuThSa@0630 [facility] Stop: 07/06/18 06:29 Liothyronine Sodium (Cytomel) 5 mcg PO BID [facility] Stop: 07/05/18 08:59 Last Admin: 06/05/18 20:16 Dose: 5 mcg Lisinopril (Zestril) 20 mg PO DAILY [facility] Stop: 07/05/18 08:59 Last Admin: 06/05/18 09:05 Dose: 20 mg Metoprolol Tartrate (Lopressor) 75 mg PO BID [facility] Stop: 07/05/18 20:59 Last Admin: 06/05/18 20:16 Dose: 75 mg Nitroglycerin (Nitrostat) 0.4 mg SL UD PRN PRN Reason: Chest Pain Stop: 07/05/18 05:58 Pantoprazole Sodium (Protonix) 40 mg PO DAILY [facility] Stop: 07/05/18 08:59 Last Admin: 06/05/18 09:05 Dose: 40 mg Sertraline HCl (Zoloft) 25 mg PO DAILY [facility] Stop: 07/05/18 08:59 Last Admin: 06/05/18 09:05 Dose: 25 mg Tramadol HCl (Ultram) 25 - 50 mg PO Q4H PRN PRN Reason: Pain Stop: 07/05/18 05:58 Warfarin Sodium (Coumadin) 2.5 mg PO [id number]@1600 [facility] Stop: 07/06/18 15:59 Warfarin Sodium (Coumadin) 5 mg PO [id number]@1600 [facility] Stop: 07/05/18 17:14 Last Admin: 06/05/18 17:25 Dose: 5 mg
[2018-06-05] MEDS ORDERED: WARFARIN SOD 5 MG TAB PO SCH (17:15)
[2018-06-05] MEDS: FUROSEMIDE 40 MG TAB PO SCH (20:15)
[2018-06-05] MEDS: METOPROLOL TARTRATE 25 MG TAB PO SCH (20:16)
[2018-06-06 04:09] LABS: Appearance Urine Clear (Clear); Bacteria Urine Automated Negative (Negative); Bilirubin Urine Negative (Negative); Color Urine Yellow; Epithelial Cell Urine Auto >30 /lpf (0-5); Glucose Urine UA Negative (Negative); Ketones Urine Negative (Negative); Leukocyte Esterase Urine 2+ (Negative); Nitrite Urine Negative (Negative); Protein Urine Negative (Negative); Specific Gravity Urine 1.008 (1.000-1.030); Urobilinogen Urine Negative (Negative)
[2018-06-06] MEDS ORDERED: LEVOTHYROXINE SODIUM 25 MCG TABLET PO SCH (06:30)
[2018-06-06 07:24] LABS: Basophils # (auto) 0.02 K/uL (0-0.2); Basophils % (auto) 0.3 %; Eosinophils # (auto) 0.12 K/uL (0-0.5); Hematocrit (blood only) 36.7 % (37-47); Hemoglobin 11.4 g/dL (12.0-16.0); Immature Granulocytes # (auto) 0.01 K/uL (0.00-0.02); Immature Granulocytes % (auto) 0.2 %; Lymphocytes # (auto) 1.07 K/uL (1.2-3.4); Mean Corpuscular Hgb Conc 31.1 g/dL (32-36); Mean Corpuscular Volume 94.6 fL (80-100); Mean Platelet Volume 10.5 fL (7.4-10.4); Monocytes # (auto) 0.42 K/uL (0.11-0.59); Monocytes % (auto) 7.1 %; Neutrophils # (auto) 4.29 K/uL (1.4-6.5); Neutrophils % (auto) 72.4 %; Platelet Count 143 K/uL (130-400); RDW Coefficient of Variation 14.6 % (11.5-14.5); Red Blood Count 3.88 M/uL (4.2-5.4); White Blood Count 5.93 K/uL (4.8-10.8)
[2018-06-06 07:25] LABS: INR 2.2 (0.9-1.1); Prothrombin Time 21.5 Seconds (9.0-12.0)
[2018-06-06 07:58] LABS: Albumin Level 3.4 gm/dl (3.4-5.0); BUN Creatinine Ratio 11.7 (10-20); Calcium 8.8 mg/dl (8.5-10.1); Creatinine Clr Calc Pharmacy 29.6 ml/min; Est GFR (African American) 47.6; Est GFR (Non-African American) 41.1; Potassium 4.1 mmol/L (3.5-5.1)
[2018-06-06 08:05] LABS: Globulin 3.4 gm/dl (2.5-4.0); Total Protein 6.8 gm/dl (6.4-8.2)
[2018-06-06] MEDS: ATORVASTATIN 20 MG TAB PO SCH (08:25)
[2018-06-06] MEDS: LISINOPRIL 20 MG TAB PO SCH (08:25)
[2018-06-06] MEDS: PANTOprazole 40 MG TAB PO SCH (08:25)
[2018-06-06] MEDS: METOPROLOL TARTRATE 25 MG TAB PO SCH (08:25)
[2018-06-06] MEDS: FUROSEMIDE 40 MG TAB PO SCH ×2 (08:26→16:52)
[2018-06-06] MEDS: SERTRALINE HCL 50 MG TABLET PO SCH (08:26)
[2018-06-06] MEDS: LIOTHYRONINE SODIUM 5 MCG TAB PO SCH (08:26)
[2018-06-06] MEDS ORDERED: WARFARIN SOD 2.5 MG TAB PO SCH (16:00)
--- NOTE | 2018-06-11 13:34 | Discharge Summary ---
Date of Service June 11, 2018 Admission HPI Per Admitting Provider History obtained from patient, family, and records. Medical history significant for SSS sp PPM on Coumadin, chronic diastolic heart failure EF 50-54% TTE 2017, hypertension, hyperlipidemia, GERD, mood disorder, CRI baseline creatinine 1.2-1.3. Recent confinement April 2017 under Cardiology service for pacemaker placement for sick sinus syndrome. Patient noted achy epigastric discomfort with nausea last night. No emesis, good bowel movement. Patient denies dysuria symptoms. Patient denies chest pain. Usual SOB on exertion symptoms. At the ER, patient noted to be in rapid atrial flutter. Patient given IV Metoprolol at the ER. 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 Admission Exam Per Admitting Provider GENERAL: Comfortable slightly anxious, tremulous, obese no respiratory distress SKIN: Normal color, warm HEENT: [place] palpebral conjunctivae, no ptosis, dry buccal mucosa NECK : Supple, short neck, no tenderness CHEST : Decreased breath sounds , no tenderness HEART : Tachycardic, systolic murmur ABDOMEN: Some distention, epigastric tenderness EXTREMITIES : min LE swelling, no LE tenderness, no other conspicuous deformities noted NEUROLOGIC : Coherent but slightly hard of hearing, no facial asymmetry, chronic rest tremors Principal Diagnosis Epigastric pain-resolved Hypoxia-resolved Atrial fibrillation Discharge Exam GENERAL: NAD SKIN: warm and dry HEENT: MMM NECK : Supple, no tenderness CHEST : Decreased breath sounds , no tenderness HEART : Tachycardic, systolic murmur ABDOMEN: NTND, soft, +BS EXTREMITIES : no edema NEUROLOGIC : Coherent but slightly hard of hearing, no facial asymmetry, chronic rest tremors Discharge Data Allergies Allergy/AdvReac Type Severity Reaction Status Date / Time Sulfa (Sulfonamide Allergy Mild HIVES Verified 06/05/18 03:41 Antibiotics) Consultations 06/05/18 03:17 ED Decision to Admit Stat Ordered Studies 06/05/18 04:26 CT abd pelvis wo con Urgent 06/05/18 05:59 US gallbladder Urgent Hospital Course (1) Hypoxia: (2) Epigastric abdominal pain: (3) Atrial fibrillation, rapid: (4) Diastolic heart failure: (5) HTN (hypertension): (6) CKD (chronic kidney disease), stage III: 83-year-old female presented to the ER via EMS for abdominal pain. This had reportedly been going on all day prior to arrival and improved when she received supplemental oxygen in the ambulance. She did not have any nausea or vomiting. In the ER she was afebrile pulse was 125, respiration rate 31, blood pressure 132/98 and she was 98% on room air. Respiration rate improved to normal range within a short time after arrival to the ER. Initially the patient 's epigastric pain was suspected to be cardiac related with uncontrolled ventricular rate in setting of atrial fibrillation. Her troponin was 0.018. EKG revealed rapid A. fib at 114 bpm. There was no significant ST changes to indicate acute IA. She was given metoprolol 5 mg IV for rate control was also given full dose aspirin. She was admitted to the hospitalist service for further workup. A CT scan of her abdomen and pelvis without contrast revealed a large hiatal hernia, no evidence of gastric outlet obstruction, however, there was a significant hyperdense material in the gastric lumen that may suggest the presence of a bezoar. Physiologic distention of the gallbladder was seen, though wall thickening was thought possible. Bladder wall thickening was seen with subtle urothelial thickening in the upper tracts concerning for cystitis. A urinalysis was obtained and was negative for infection, positive for contamination. Ultimately urine culture revealed 3 types of organisms present at all low counts that were probable skin melody. A gallbladder ultrasound was performed revealing cholelithiasis and mild gallbladder wall thickening, findings equivocal for acute cholecystitis. The case was discussed with the general surgery who suggested the patient try some solid food. She handled this well and without issue or return of abdominal pain. During her hospitalization she never spiked a fever or developed return of the abdominal pain. The question of the need for supplemental oxygen and the fact this made her feel better was somewhat of a mystery. She was noted to have severe pulmonary hypertension which may have contributed to transient hypoxia. Likewise symptomatic atrial fibrillation with RVR or symptomatic hiatal hernia may also have contributed temporarily. Ultimately she did not need to be discharged with oxygen. A two-step was done at time of discharge and proved this. Serial troponin were negative overnight. An echocardiogram was performed the following day revealing mild concentric LVH, mild global hypokinesis of the left ventricle with an ejection fraction 45-50%. This was discussed with the childcare director on-call who compared her current echo to the prior echo and saw no significant difference. At time of discharge she was mentating and ambulating at baseline and tolerating p.o. Symptoms had completely resolved and she was discharged in stable condition with close primary care follow-up. Total Time Total Time Spent Total Time Spent (In Minutes): 60 Total Time Includes: Examination of the Patient, Discharge Planning, Medication Reconciliation and Communication With Other Providers Discharge Plan Discharge Items Patient Disposition: Home - Home Health Services Reason For Visit: RAPID AF, ABD PAIN Discharge Diagnosis: Epigastric pain-resolved Hypoxia-resolved Atrial fibrillation Condition: Good Discharge Goals: Decrease discomfort Activity: Resume your previous activity Non-emergency contact: Primary Care Provider Call non-emergency contact if: you have any medication questions, your symptoms worsen, your pain is not controlled and you have a fever Diet: Heart Healthy Addtl Provider Instructions: Please take all medications as instructed on discharge list below. It is recommended that you follow-up with your primary care provider within 1 week of discharge. You were noted to have a small pericardial effusion on CT imaging in this hospitalization. Please discuss with primary care doctor regarding repeat echocardiogram in the future to monitor this. You are being sent home with Home Health for Physical Therapy. It was a pleasure taking care of you! Please call if you have any questions or problems. You can reach a [facility] hospitalist on duty at [facility] 24 hours a day by calling [phone]. Take care of yourself. Mary Love, DO [facility] Hospitalist Prescriptions: Continue furosemide 40 mg Tablet 40 mg PO BID RF: 0 atorvastatin 20 mg Tablet 20 mg PO DAILY RF: 0 lisinopril 20 mg Tablet 20 mg PO DAILY RF: 0 warfarin 2.5 mg Tablet 2.5 mg PO 4XWK RF: 0 warfarin [Coumadin] 2.5 mg Tablet 5 mg PO 3XWK RF: 0 calcium carbonate [Calcium 600] 600 mg calcium (1,500 mg) Tablet 600 mg PO DAILY RF: 0 metoprolol tartrate 50 mg Tablet 75 mg PO BID RF: 0 sertraline 25 mg Tablet 25 mg PO DAILY RF: 0 omeprazole 20 mg Tablet,Delayed Release (Dr/Ec) 20 mg PO DAILY RF: 0 cholecalciferol (vitamin D3) [Vitamin D3] 2,000 unit Tablet 2,000 unit PO DAILY RF: 0 alendronate [Fosamax] 70 mg Tablet 70 mg PO WK RF: 0 liothyronine 5 mcg Tablet 5 mcg PO BID RF: 0 levothyroxine 25 mcg Tablet 50 mcg PO 3XWK RF: 0 levothyroxine 25 mcg Tablet 25 mcg PO 4XWK RF: 0 Visit Report Forms: My [facility] Stand-Alone Forms: [facility] Discharge Orders: Discharge Order (Routine); Ordered 06/06/18 Ordered By: Mary Love Admission Data Admit Date/Time: 06/05/18 16:50 Attending Provider: Mary Love Admit Provider: Sacha Akhtar Primary Care Provider: Delia Marquez Service: Telemetry Medical Other Interventions: Discharge Summary Assessment (RN) Last Done: 06/06/18 16:07 DC Date/Time DO NOT enter until pt leaves facility: 06/06/18 17:00
== END 2018-06-06 17:00 | disposition home health service (06) | DRG 309 ==
LOC: 2S 23:33 → ED 23:33 → 2S 06-05 04:54 → 2N 06-05 09:28
DX: Z79.899 Other long term (current) drug therapy; I48.91 Unspecified atrial fibrillation; N18.3 Chronic kidney disease, stage 3 (moderate); I50.32 Chronic diastolic (congestive) heart failure; R09.02 Hypoxemia; R10.13 Epigastric pain; I13.0 Hypertensive heart and chronic kidney disease with heart failure and stage 1 through stage 4 chronic kidney disease, or unspecified chronic kidney disease; Z88.2 Allergy status to sulfonamides; R73.9 Hyperglycemia, unspecified; Z79.01 Long term (current) use of anticoagulants

== ENCOUNTER 2021-01-23 17:02 | Inpatient (IN) ==
--- NOTE | 2021-01-23 18:11 | Emergency Department Note ---
History of Present Illness General Chief complaint: Back Injury/Pain Time Seen by Provider: 01/23/21 17:20 Source: patient and family History of Present Illness Provider complaint: Back pain Onset (ago): day(s) Location: back Radiation: non-radiation Severity: mild Pain Consistency: + intermittent Quality: + dull Relieved By: + none Associated symptoms: + other (Abdominal discomfort after eating); no chest pain, no cough, no fever/chills, no headaches, no nausea/vomiting or no shortness of breath This is an 85-year-old male brought in by EMS for evaluation of low back pain. I did obtain history from the patient and her son. He states that yesterday she was going from the wheelchair to the car and she twisted her back causing pain to her lower back. She states the pain is better and it is mild. She normally does not walk very much but she is not wheelchair-bound. She does live with her son. She states the pain does not radiate anywhere. No associated numbness or weakness to lower extremities. She has had no fecal urinary incontinence. She had a normal bowel movement yesterday. She has been urinating normally. Her son also notes that she has had some stomach upset for the past 2 weeks. He states that every time she eats she has to take some Tums. She denies any fever, nausea or vomiting, chest pain, shortness of breath, cough or cold sympto ms. She does have a history of atrial fibrillation and is on metoprolol and Coumadin. Home Medications Medication Instructions Recorded Confirmed Type atorvastatin 20 mg tablet 20 mg PO DAILY 06/05/18 01/23/21 History calcium carbonate 600 mg calcium 600 mg PO DAILY 06/05/18 01/23/21 History (1,500 mg) tablet (Calcium) cholecalciferol (vitamin D3) 50 2,000 unit PO DAILY 06/05/18 01/23/21 History mcg (2,000 unit) tablet (Vitamin D3) furosemide 40 mg tablet 40 mg PO BID 06/05/18 01/23/21 History levothyroxine 25 mcg tablet 25 mcg PO 4XWK 06/05/18 01/23/21 History levothyroxine 25 mcg tablet 50 mcg PO 3XWK 06/05/18 01/23/21 History liothyronine 5 mcg tablet 5 mcg PO BID 06/05/18 01/23/21 History metoprolol tartrate 50 mg tablet 75 mg PO BID 06/05/18 01/23/21 History omeprazole 20 mg tablet,delayed 20 mg PO DAILY 06/05/18 01/23/21 History release duloxetine 20 mg capsule,delayed 20 mg PO DAILY 01/23/21 01/23/21 History release levalbuterol tartrate 45 1 puff INHALATION UD 01/23/21 01/23/21 History mcg/actuation aerosol inhaler warfarin 2.5 mg tablet (Jantoven) 2.5 mg PO UD 01/23/21 01/23/21 History Allergies Allergy/AdvReac Type Severity Reaction Status Date / Time Sulfa (Sulfonamide Allergy Mild HIVES Verified 01/23/21 18:24 Antibiotics) Past Med/Surg History Medical History (Updated 01/23/21 @ 20:38 by Osman Christine MD) Atrial fibrillation and flutter Tachy-césar syndrome Family History Other Family history non-contributory Social History Smoking Status: Never smoker Hx Alcohol Use: Yes Alcohol type: wine Hx Substance Use: No Preferred Language: Turkish Communication Ability: Effective 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 and A total of 10 systems reviewed and were otherwise negative Physical Exam Vital Signs Vital Signs - 24 hr 01/23/21 16:53 01/23/21 17:08 01/23/21 18:06 Temperature 36.8 C Temperature Source Oral Pulse Rate 108 H 116 H 104 H Pulse Rate from SpO2 Sensor 126 H Pulse Rhythm Irregular Irregular Pulse Strength Normal Respiratory Rate 24 34 H Respiratory Effort / Characteristics Non-Labored Blood Pressure 165/106 H 175/142 H Blood Pressure Mean 125 153 Blood Pressure Position Lying Pulse Oximetry 100 96 98 Oxygen Delivery Method Nasal Cannula Nasal Cannula Oxygen Flow Rate 2 2 Sepsis Recent Fever Within 48 Hours No Sepsis New/Unexplained Change in Mental Status N/A Sepsis Action Taken by Nursing Physician Notified Constitutional: Vital signs reviewed. Eyes: Pupils are equal round reactive to light. Conjunctiva are noninjected. ENT: Pharynx is clear without erythema or exudate. Mucous membranes are moist. Neck supple without meningeal signs. Respiratory: Clear to auscultation bilaterally. Breath sounds are equal bilaterally. Cardiovascular: Regular rate and rhythm. No rubs or gallops. GI: Soft, nondistended and nontender. Bowel sounds are present. Musculoskeletal: No peripheral edema. No lower extremity tenderness. Mild bruising to the right lower extremity. Integumentary: No cyanosis. or jaundice. Neurological: The patient is awake and alert. No focal deficits. Motor and sensation are intact in the lower extremities. Psychiatric: Normal affect. Not anxious appearing. Medical Decision Making Differential Diagnosis Lumbar strain, lumbar disc disease, pathologic fracture, pancreatitis, peptic ulcer disease, cholelithiasis Medical Records Attestation: I reviewed the patient's medical records. I did perform a limited focused review of portions of the patient's old chart on the electronic medical record. The patient has had no recent pertinent visits to this hospital. Home Medications Current Medication List: was personally reviewed by me Laboratory Data Attestation: I reviewed the patient's lab results. Result diagrams: 01/23/21 18:30 01/23/21 18:30 Lab Results 01/23/21 01/23/21 01/23/21 Range/Units 18:30 18:30 18:30 WBC 7.46 (4.8-10.8) K/uL RBC 4.04 L (4.2-5.4) M/uL Hgb 11.9 L (12.0-16.0) g/dL Hct 40.4 (37-47) % MCV 100.0 (80-100) fL MCH 29.5 (25-34) pg MCHC 29.5 L (32-36) g/dL RDW Std Deviation 56.5 H (36.4-46.3) fL RDW Coeff of [place] 15.4 H (11.5-14.5) % Plt Count 176 (130-400) K/uL MPV 10.6 H (7.4-10.4) fL Immature Gran % (Auto) 0.1 % Neut % (Auto) 78.2 % Lymph % (Auto) 11.1 % [place] % (Auto) 9.5 % Eos % (Auto) 0.8 % Baso % (Auto) 0.3 % Neut # (Auto) 5.83 (1.4-6.5) K/uL Lymph # (Auto) 0.83 L (1.2-3.4) K/uL [place] # (Auto) 0.71 H (0.11-0.59) K/uL Eos # (Auto) 0.06 (0-0.5) K/uL Baso # (Auto) 0.02 (0-0.2) K/uL Immature Gran # (Auto) 0.01 (0.00-0.02) K/uL PT 30.3 H (9.0-12.0) Seconds INR 3.3 H (0.9-1.1) Sodium 142 (136-145) mmol/L Potassium 3.3 L (3.5-5.1) mmol/L Chloride 97 L (98-107) mmol/L Carbon Dioxide 41 H* (21-32) mmol/L Anion Gap 4.0 (3-11) BUN 27 H (7-18) mg/dl Creatinine 1.54 H (0.6-1.2) mg/dl Est Cr Clr Drug Dosing 24.3 ml/min Est GFR ( Amer) 35.1 ml/min Est GFR (Non-Af Amer) 30.2 ml/min BUN/Creatinine Ratio 17.3 (10-20) Glucose 175 H (70-99) mg/dl Calcium 9.3 (8.5-10.1) mg/dl Total Bilirubin 0.7 (0.2-1) mg/dl AST 15 (15-37) U/L ALT 14 (12-78) U/L Alkaline Phosphatase 60 (45-117) U/L Troponin I 0.031 (0-0.045) ng/ml Total Protein 7.5 (6.4-8.2) gm/dl Albumin 3.5 (3.4-5.0) gm/dl Globulin 4.0 (2.5-4.0) gm/dl Albumin/Globulin Ratio 0.9 (0.9-2) Lipase 162 (73-393) U/L Imaging Data Radiologist's Impression: Abdomen/Pelvis CT 01/23/21 18:06 CT OF THE ABDOMEN AND PELVIS WITHOUT CONTRAST CLINICAL HISTORY: Abdominal pain. COMPARISON STUDY: CT of the abdomen and pelvis and right upper quadrant on June 05, 2018. TECHNIQUE: Axial images of the abdomen and pelvis were obtained without IV contrast. Images were reviewed in the axial, sagittal, and coronal planes. Automated exposure control was utilized for the study. A dose lowering technique was utilized adhering to the principles of ALARA. FINDINGS: Pacer leads are partially imaged. Moderate cardiomegaly is again noted. A small pericardial effusion is similar to CT of June 05, 2018. There are small bilateral pleural effusions with associated atelectasis. A large hiatal hernia is noted. This contains a portion of the stomach and the distal transverse colon. Evaluation of the abdomen and pelvis is suboptimal on this unenhanced examination. The liver, spleen, adrenal glands, kidneys and pancreas are grossly unremarkable. A lobulated water attenuation 2.5 cm density along the medial cortex of the midpole of the left kidney is unchanged. This favors a cyst. There is no hydronephrosis. There is no biliary or pancreatic ductal dilatation. There is no evidence for a bowel obstruction. There is minimal presacral infiltration. There is no ascites. There is no lymphadenopathy. Lumbar spine CT will be reported separate. Old left pubic ring fractures are noted. Old right inferior pubic rami fractures are present. IMPRESSION: 1. No acute process within the abdomen or pelvis on unenhanced exam. 2. Large hiatal hernia which contains a portion of the stomach and distal transverse colon. No bowel obstruction. 3. Small bilateral pleural effusions. Small pericardial effusion, unchanged since CT of June 05, 2018. ACT 112: Negative or not required by law. Electronically signed by: Liam Navarro M.D. 01/23/2021 7:[address] 01/23/21 18:06 CT OF THE LUMBAR SPINE CLINICAL HISTORY: pain eval for fx COMPARISON STUDY: CT of the abdomen and pelvis June 05, 2018. TECHNIQUE: Helical axial images of the lumbar spine were obtained. Sagittal and coronal reconstructions were viewed. Automated exposure control was utilized for the study. A dose lowering technique was utilized adhering to the principles of ALARA. FINDINGS: There is mild S-shaped scoliosis of the lower thoracic and lumbar spine. There is mild anterolisthesis of L4 and L5 due to facet arthrosis. A mild compression deformity of the superior endplate of L2 is unchanged since CT of June 05, 2018. There is no acute lumbar spine fracture. Moderate multilevel degenerative disc disease and facet arthrosis is present. Central canal and neural foramen are suboptimally assessed by CT. Vertebral soft tissues are unremarkable. Sacroiliac joints are intact. IMPRESSION: 1. No acute lumbar spine fracture or subluxation. 2. No change in an old mild L2 compression deformity since CT of June 05, 2018. 3. Moderate multilevel degenerative changes within the lumbar spine. 4. Mild S-shaped scoliosis of the lower thoracic and lumbar spine and mild anterolisthesis of L4 and L5. ACT 112: Negative or not required by law. Electronically signed by: Liam Navarro M.D. 01/23/2021 7:18 PM Chest X-Ray 01/23/21 19:29 XR chest 1V portable CLINICAL HISTORY: low sats eval for PNA COMPARISON STUDY: Chest radiograph November 03, 2018. FINDINGS: A left subclavian pacer is in place. Moderate cardiomegaly is noted. There is a large hiatal hernia. There are small bilateral pleural effusions. T here is no pneumothorax. Apparent right lung airspace opacity on the initial image is not present on the second image. This probably reflects layering pleural fluid. IMPRESSION: 1. Cardiomegaly. No evidence for overt pulmonary edema. 2. Small bilateral pleural effusions. 3. Large hiatal hernia. ACT 112: Negative or not required by law. Electronically signed by: Liam Navarro M.D. 01/23/2021 7:53 PM ECG Data Attestation: I personally reviewed and interpreted this ECG as follows: Indication: + abdominal pain Rate (beats per minute): 109 Rhythm: + atrial fibrillation ECG Intervals/blocks: + Left anterior fascicular block ECG [place]: + Left axis deviation ECG Findings: no PVCs MDM Narrative I did evaluate the patient as noted above. The patient is brought in by ambulance. Her son was concerned about her as she hurt her back yesterday when she twisted it. She also has not been eating and drinking very well for the past 2 weeks. She has been complaining of upper abdominal pain after eating and usually takes Tums afterwards. She is oxygen dependent although her son does not know why she is on oxygen. He denies any history of CHF or COPD. IV access was established. I did place an order for continuous cardiac monitoring. The monitor showed atrial fibrillation with a rate of 99 bpm. I did order and personally review the patient's 12-lead EKG as described above. She has atrial fibrillation with RVR. I did order and personally reviewed the images of the patient's chest x-ray as described above. She has bilateral pleural effusions without pulmonary edema. I did order a urine analysis. I did order and review the patient's blood work as noted in the electronic medical record. CBC is unr emarkable without leukocytosis. She has a mild anemia with a hemoglobin 11.9. Electrolytes demonstrate a potassium of 3.3 a chloride of 97 and a CO2 of 41. Creatinine is elevated above baseline at 1.5. Glucose is 175. Troponin and LFTs are unremarkable. INR is elevated at 3.3. I did order a CT of the abdomen and pelvis and lumbar spine. I did review the images myself as well as the radiology report as described above. CT of the abdomen pelvis does not show any acute process or obstruction. She does have a large hiatal hernia with stomach contents as well as transverse colon in the chest. She has bilateral pleural effusions as well as a pericardial effusion. I did discuss the test results with the patient's son. The patient has atrial fibrillation with on and off RVR. She will go from 80-120. Currently her heart rate is 96 and her blood pressure is normal. I did discuss the case with the hospitalist for further care and evaluation. ABG is currently pending. The patient has an O2 saturation of 99% on 2 L. Impression & Plan Epigastric abdominal pain, Pleural effusion, bilateral, Elevated serum creatinine, Atrial fibrillation with rapid ventricular response, Hypokalemia, Acute back pain, Supratherapeutic INR Discharge Plan Visit Data Chief Complaint: Back Injury/Pain ED Provider: Osman Christine Discharge Problem: Epigastric abdominal pain, Pleural effusion, bilateral, Elevated serum creatinine, Atrial fibrillation with rapid ventricular response, Hypokalemia, Acute back pain, Supratherapeutic INR Forms Stand Alone Forms: My [email or web address] Prescriptions Prescriptions: No Action furosemide 40 mg Tablet 40 mg PO BID RF: 0 atorvastatin 20 mg Tablet 20 mg PO DAILY RF: 0 calcium carbonate [Calcium 600] 600 mg calcium (1,500 mg) Tablet 600 mg PO DAILY RF: 0 metoprolol tartrate 50 mg Tablet 75 mg PO BID RF: 0 omeprazole 20 mg Tablet,Delayed Release (Dr/Ec) 20 mg PO DAILY RF: 0 cholecalciferol (vitamin D3) [Vitamin D3] 2,000 unit Tablet 2,000 unit PO DAILY RF: 0 liothyronine 5 mcg Tablet 5 mcg PO BID RF: 0 levothyroxine 25 mcg Tablet 50 mcg PO 3XWK RF: 0 levothyroxine 25 mcg Tablet 25 mcg PO 4XWK RF: 0 levalbuterol tartrate 45 mcg/actuation HFA aerosol inhaler 1 puff INHALATION UD RF: 0 duloxetine 20 mg capsule,delayed release(DR/EC) 20 mg PO DAILY RF: 0 warfarin [Jantoven] 2.5 mg tablet 2.5 mg PO UD RF: 0 Referrals Referrals: Delia Marquez DO [Primary Care Provider] -
[2021-01-23 19:03] LABS: INR 3.3 (0.9-1.1); Prothrombin Time 30.3 Seconds (9.0-12.0)
--- NOTE | 2021-01-23 19:16 | CT Scan Report ---
CT OF THE ABDOMEN AND PELVIS WITHOUT CONTRAST CLINICAL HISTORY: Abdominal pain. COMPARISON STUDY: CT of the abdomen and pelvis and right upper quadrant on June 05, 2018. TECHNIQUE: Axial images of the abdomen and pelvis were obtained without IV contrast. Images were revi ewed in the axial, sagittal, and coronal planes. Automated exposure control was utilized for the iasel dy. A dose lowering technique was utilized adhering to the principles of ALARA. FINDINGS: Pacer leads are partially imaged. Moderate cardiomegaly is again noted. A small pericardial effusion is similar to CT of June 05, 2018. There are small bilateral pleural effusions with assoc iated atelectasis. A large hiatal hernia is noted. This contains a portion of the stomach and the dis mini transverse colon. Evaluation of the abdomen and pelvis is suboptimal on this unenhanced examinati on. The liver, spleen, adrenal glands, kidneys and pancreas are grossly unremarkable. A lobulated debbie er attenuation 2.5 cm density along the medial cortex of the midpole of the left kidney is unchanged. This favors a cyst. There is no hydronephrosis. There is no biliary or pancreatic ductal dilatation. There is no evidence for a bowel obstruction. There is minimal presacral infiltration. There is no a scites. There is no lymphadenopathy. Lumbar spine CT will be reported separate. Old left pubic ring f ractures are noted. Old right inferior pubic rami fractures are present. IMPRESSION: 1. No acute process within the abdomen or pelvis on unenhanced exam. 2. Large hiatal hernia which contains a portion of the stomach and distal transverse colon. No bowel obstruction. 3. Small bilateral pleural effusions. Small pericardial effusion, unchanged since CT of June 05 19. ACT 112: Negative or not required by law. Electronically signed by: Liam Navarro M.D. 01/23/2021 7:15 PM
--- NOTE | 2021-01-23 19:20 | CT Scan Report ---
CT OF THE LUMBAR SPINE CLINICAL HISTORY: pain eval for fx COMPARISON STUDY: CT of the abdomen and pelvis June 05, 2018. TECHNIQUE: Helical axial images of the lumbar spine were obtained. Sagittal and coronal reconstruct ions were viewed. Automated exposure control was utilized for the study. A dose lowering technique was utilized adhering to the principles of ALARA. FINDINGS: There is mild S-shaped scoliosis of the lower thoracic and lumbar spine. There is mild ante rolisthesis of L4 and L5 due to facet arthrosis. A mild compression deformity of the superior endplat e of L2 is unchanged since CT of June 05, 2018. There is no acute lumbar spine fracture. Moderate m ultilevel degenerative disc disease and facet arthrosis is present. Central canal and neural foramen are suboptimally assessed by CT. Vertebral soft tissues are unremarkable. Sacroiliac joints are intac t. IMPRESSION: 1. No acute lumbar spine fracture or subluxation. 2. No change in an old mild L2 compression deformity since CT of June 05, 2018. 3. Moderate multilevel degenerative changes within the lumbar spine. 4. Mild S-shaped scoliosis of the lower thoracic and lumbar spine and mild anterolisthesis of L4 and L5. ACT 112: Negative or not required by law. Electronically signed by: Liam Navarro M.D. 01/23/2021 7:18 PM
[2021-01-23 19:26] LABS: Albumin Globulin Ratio 0.9 (0.9-2); Albumin Level 3.5 gm/dl (3.4-5.0); BUN Creatinine Ratio 17.3 (10-20); Bilirubin,Total 0.7 mg/dl (0.2-1); Calcium 9.3 mg/dl (8.5-10.1); Creatinine Clr Calc Pharmacy 24.3 ml/min; Est GFR (African American) 35.1 ml/min; Est GFR (Non-African American) 30.2 ml/min; Potassium 3.3 mmol/L (3.5-5.1); Total Protein 7.5 gm/dl (6.4-8.2); Troponin I 0.031 ng/ml (0-0.045)
[2021-01-23 19:33] LABS: Hematocrit (blood only) 40.4 % (37-47); Hemoglobin 11.9 g/dL (12.0-16.0); Mean Corpuscular Hemoglobin 29.5 pg (25-34); Mean Corpuscular Hgb Conc 29.5 g/dL (32-36); Mean Platelet Volume 10.6 fL (7.4-10.4); Platelet Count 176 K/uL (130-400); RDW Coefficient of Variation 15.4 % (11.5-14.5); RDW Standard Deviation 56.5 fL (36.4-46.3); Red Blood Count 4.04 M/uL (4.2-5.4); White Blood Count 7.46 K/uL (4.8-10.8)
[2021-01-23 19:45] LABS: Basophils # (auto) 0.02 K/uL (0-0.2); Basophils % (auto) 0.3 %; Eosinophils # (auto) 0.06 K/uL (0-0.5); Eosinophils % (auto) 0.8 %; Immature Granulocytes # (auto) 0.01 K/uL (0.00-0.02); Immature Granulocytes % (auto) 0.1 %; Lymphocytes # (auto) 0.83 K/uL (1.2-3.4); Lymphocytes % (auto) 11.1 %; Monocytes # (auto) 0.71 K/uL (0.11-0.59); Monocytes % (auto) 9.5 %; Neutrophils # (auto) 5.83 K/uL (1.4-6.5); Neutrophils % (auto) 78.2 %
--- NOTE | 2021-01-23 19:55 | XRay Report ---
XR chest 1V portable CLINICAL HISTORY: low sats eval for PNA COMPARISON STUDY: Chest radiograph November 03, 2018. FINDINGS: A left subclavian pacer is in place. Moderate cardiomegaly is noted. There is a large hiata l hernia. There are small bilateral pleural effusions. There is no pneumothorax. Apparent right lung airspace opacity on the initial image is not present on the second image. This probably reflects laye ring pleural fluid. IMPRESSION: 1. Cardiomegaly. No evidence for overt pulmonary edema. 2. Small bilateral pleural effusions. 3. Large hiatal hernia. ACT 112: Negative or not required by law. Electronically signed by: Liam Navarro M.D. 01/23/2021 7:53 PM
[2021-01-23 20:22] LABS: Base Excess ABG 13.4 mEq/L (-9-1.8); HCO3 ABG 43 mmol/L (19-24); Oxygen Saturation ABG 96.7 % (90-95); PCO2 ABG 83 mmHg (35-46); PO2 ABG 99 mmHg (80-95); pH ABG 7.33 (7.35-7.45)
[2021-01-23] MEDS ORDERED: POTASSIUM CHLORIDE CRTAB 20 MEQ TABCR PO STA (20:36)
[2021-01-23] MEDS ORDERED: METOPROLOL TARTRATE 25 MG TAB PO STA (20:37)
[2021-01-23] MEDS ORDERED: HYDROmorphone INJ 0.5 MG/0.5 ML SYR IV PRN ×2 (20:42→22:14)
[2021-01-23] MEDS ORDERED: ACETAMINOPHEN 325 MG TAB PO PRN (20:42)
[2021-01-23] MEDS ORDERED: traMADol HCL 50 MG TABLET PO PRN (20:42)
[2021-01-23 21:18] LABS: Magnesium 2.5 mg/dl (1.8-2.4); Thyroid Stimulating Hormone 1.79 uIu/ml (0.300-4.500)
[2021-01-23] MEDS ORDERED: ACETAMINOPHEN 325 MG TAB PO STA (21:21)
--- NOTE | 2021-01-23 21:30 | History & Physical Report ---
Date of Service January 23, 2021 Assessment & Plan (1) Encephalopathy: Plan: ? 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 Coumadin INR goal between 2 and 3 Full code Patient's requesting for updates from providers. Mr. Adebayo Casas, contact #[phone]. Text document was generated using [employer] voice recognition software. It may contain grammatical or spelling errors. Kindly contact undersigned for clarification of any documentation item in question. History of Present Illness Chief Complaint: Back pain as per records Primary Care Provider: Delia Marquez, History obtained from patient, family, and records. History limited from patient secondary to episodic lethargy. Medical history significant for SSS sp PPM on Coumadin, chronic systolic heart failure EF 45 to 50%, TTE 2019, hypertension, hyperlipidemia, GERD, mood disorder, CRI baseline creatinine 1.7, chronic anemia (baseline hemoglobin at 11), hypothyroidism. Last confinement 2019 for epigastric pain. Imaging equivocal for cholecystitis. Abdominal pain resolved during confinement. Patient twisted her back yesterday while trying to get out of her wheelchair. Achy low back pain without lower extremity weakness. No fever, no chills. No chest pain, no headache. Patient also complaining of episodic epigastric pain for a few weeks now. Usual exertional shortness of breath with dry cough symptoms. No fluid retention as per . No known recent COVID-19 contacts. Patient falls asleep at home from time to time as per . Patient directed to the ER for evaluation by PCP. Episodic lethargy noted at the ER. 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 Allergies Allergy/AdvReac Type Severity Reaction Status Date / Time Sulfa (Sulfonamide Allergy Mild HIVES Verified 01/23/21 18:24 Antibiotics) Home Medications Medication Instructions Recorded Confirmed Type atorvastatin 20 mg tablet 20 mg PO DAILY 06/05/18 01/23/21 History calcium carbonate 600 mg calcium 600 mg PO DAILY 06/05/18 01/23/21 History (1,500 mg) tablet (Calcium) cholecalciferol (vitamin D3) 50 2,000 unit PO DAILY 06/05/18 01/23/21 History mcg (2,000 unit) tablet (Vitamin D3) furosemide 40 mg tablet 40 mg PO BID 06/05/18 01/23/21 History levothyroxine 25 mcg tablet 25 mcg PO 4XWK 06/05/18 01/23/21 History levothyroxine 25 mcg tablet 50 mcg PO 3XWK 06/05/18 01/23/21 History liothyronine 5 mcg tablet 5 mcg PO BID 06/05/18 01/23/21 History metoprolol tartrate 50 mg tablet 75 mg PO BID 06/05/18 01/23/21 History omeprazole 20 mg tablet,delayed 20 mg PO DAILY 06/05/18 01/23/21 History release duloxetine 20 mg capsule,delayed 20 mg PO DAILY 01/23/21 01/23/21 History release levalbuterol tartrate 45 1 puff INHALATION UD 01/23/21 01/23/21 History mcg/actuation aerosol inhaler warfarin 2.5 mg tablet (Jantoven) 2.5 mg PO UD 01/23/21 01/23/21 History Past Med/Surg History Medical History (Updated 01/24/21 @ 09:01 by Sacha Akhtar MD) Atrial fibrillation and flutter Tachy-césar syndrome Family History Other Family history non-contributory Social History Smoking Status: Unknown if ever smoked Hx Alcohol Use: Yes Alcohol type: wine Hx Substance Use: No Preferred Language: Turkish Communication Ability: Effective Intake Clinician Required: No Beliefs That Will Affect Care: None marital status: Current Living Situation: Family Other Information That Helps Us Care for You: No Feels Safe at Home: Yes Safety Concerns: Feels Safe At This Time Assistive Devices: Denture - Lower, Glasses and Oxygen - Continuous Review of Systems Review of Systems: Could not be reliably obtained Physical Exam Physical Exam: GENERAL: Lethargic, no respiratory distress, obese, SKIN: Pallor, warm HEENT: Pale palpebral conjunctivae, no ptosis, dry buccal mucosa, nasal cannula in place NECK : Supple, short neck, no tenderness CHEST : Decreased breath sounds , no tenderness HEART : Irregular, tachycardic, systolic murmur ABDOMEN: Some distention, epigastric tenderness BACK : Low back tenderness, negative SLR EXTREMITIES : min LE swelling, no LE tenderness, no other conspicuous deformities noted NEUROLOGIC : Lethargic, slightly hard of hearing, no facial asymmetry, occasional rest tremors Results & Data Results & Data ([facility]) Vital Signs (Past 12 Hours) Vital Signs Temp Pulse Pulse Resp BP BP Pulse Ox 01/23/21 21:15 96 H 18 130/95 96 01/23/21 18:06 104 H 98 01/23/21 17:08 116 H 34 H 175/142 H 96 01/23/21 16:53 36.8 C 108 H 24 165/106 H 100 Laboratory Results Laboratory Results WBC 7.46 K/uL (4.8-10.8) 01/23/21 18:30 RBC 4.04 M/uL (4.2-5.4) L 01/23/21 18:30 Hgb 11.9 g/dL (12.0-16.0) L 01/23/21 18:30 Hct 40.4 % (37-47) 01/23/21 18:30 MCV 100.0 fL (80-100) 01/23/21 18:30 MCH 29.5 pg (25-34) 01/23/21 18:30 MCHC 29.5 g/dL (32-36) L 01/23/21 18:30 RDW Std Deviation 56.5 fL (36.4-46.3) H 01/23/21 18:30 RDW [employer]eff of [place] 15.4 % (11.5-14.5) H 01/23/21 18:30 Plt Count 176 K/uL (130-400) 01/23/21 18:30 MPV 10.6 fL (7.4-10.4) H 01/23/21 18:30 Immature Gran % (Auto) 0.1 % 01/23/21 18:30 Neut % (Auto) 78.2 % 01/23/21 18:30 Lymph % (Auto) 11.1 % 01/23/21 18:30 Hale % (Auto) 9.5 % 01/23/21 18:30 Eos % (Auto) 0.8 % 01/23/21 18:30 Baso % (Auto) 0.3 % 01/23/21 18:30 Neut # (Auto) 5.83 K/uL (1.4-6.5) 01/23/21 18:30 Lymph # (Auto) 0.83 K/uL (1.2-3.4) L 01/23/21 18:30 Hale # (Auto) 0.71 K/uL (0.11-0.59) H 01/23/21 18:30 Eos # (Auto) 0.06 K/uL (0-0.5) 01/23/21 18:30 Baso # (Auto) 0.02 K/uL (0-0.2) 01/23/21 18:30 Immature Gran # (Auto) 0.01 K/uL (0.00-0.02) 01/23/21 18:30 PT 30.3 Seconds (9.0-12.0) H 01/23/21 18:30 INR 3.3 (0.9-1.1) H 01/23/21 18:30 ABG pH 7.33 (7.35-7.45) L 01/23/21 20:09 ABG pCO2 83 mmHg (35-46) H 01/23/21 20:09 ABG pO2 99 mmHg (80-95) H 01/23/21 20:09 ABG HCO3 43 mmol/L (19-24) H 01/23/21 20:09 ABG O2 Saturation 96.7 % (90-95) H 01/23/21 20:09 ABG Base Excess 13.4 mEq/L (-9-1.8) H 01/23/21 20:09 Shyam Test p (Pos) 01/23/21 20:09 Barometric Pressure 732.7 mm/Hg 01/23/21 20:09 Oxygen Given 2 01/23/21 20:09 Sodium 142 mmol/L (136-145) 01/23/21 18:30 Potassium 3.3 mmol/L (3.5-5.1) L 01/23/21 18:30 Chloride 97 mmol/L (98-107) L 01/23/21 18:30 Carbon Dioxide 41 mmol/L (21-32) H* 01/23/21 18:30 Anion Gap 4.0 (3-11) 01/23/21 18:30 BUN 27 mg/dl (7-18) H 01/23/21 18:30 Creatinine 1.54 mg/dl (0.6-1.2) H 01/23/21 18:30 Est Cr Clr Drug Dosing 24.3 ml/min 01/23/21 18:30 Est GFR ( Amer) 35.1 ml/min 01/23/21 18:30 Est GFR (Non-Af Amer) 30.2 ml/min 01/23/21 18:30 BUN/Creatinine Ratio 17.3 (10-20) 01/23/21 18:30 Glucose 175 mg/dl (70-99) H 01/23/21 18:30 Calcium 9.3 mg/dl (8.5-10.1) 01/23/21 18:30 Magnesium 2.5 mg/dl (1.8-2.4) H 01/23/21 18:30 Total Bilirubin 0.7 mg/dl (0.2-1) 01/23/21 18:30 AST 15 U/L (15-37) 01/23/21 18:30 ALT 14 U/L (12-78) 01/23/21 18:30 Alkaline Phosphatase 60 U/L (45-117) 01/23/21 18:30 Troponin I 0.031 ng/ml (0-0.045) 01/23/21 18:30 Total Protein 7.5 gm/dl (6.4-8.2) 01/23/21 18:30 Albumin 3.5 gm/dl (3.4-5.0) 01/23/21 18:30 Globulin 4.0 gm/dl (2.5-4.0) 01/23/21 18:30 Albumin/Globulin Ratio 0.9 (0.9-2) 01/23/21 18:30 Lipase 162 U/L (73-393) 01/23/21 18:30 TSH 1.790 uIu/ml (0.300-4.500) 01/23/21 18:30 COVID-19 Eval Order Covid19 at [facility] 01/23/21 20:33 Impressions Abdomen/Pelvis CT 01/23/21 18:06 CT OF THE ABDOMEN AND PELVIS WITHOUT CONTRAST CLINICAL HISTORY: Abdominal pain. COMPARISON STUDY: CT of the abdomen and pelvis and right upper quadrant on June 05, 2018. TECHNIQUE: Axial images of the abdomen and pelvis were obtained without IV contrast. Images were reviewed in the axial, sagittal, and coronal planes. Aut omated exposure control was utilized for the study. A dose lowering technique was utilized adhering to the principles of ALARA. FINDINGS: Pacer leads are partially imaged. Moderate cardiomegaly is again noted. A small pericardial effusion is similar to CT of June 05, 2018. There are small bilateral pleural effusions with associated atelectasis. A large hiatal hernia is noted. This contains a portion of the stomach and the distal transverse colon. Evaluation of the abdomen and pelvis is suboptimal on this unenhanced examination. The liver, spleen, adrenal glands, kidneys and pancreas are grossly unremarkable. A lobulated water attenuation 2.5 cm density along the medial cortex of the midpole of the left kidney is unchanged. This favors a cyst. There is no hydronephrosis. There is no biliary or pancreatic ductal dilatation. There is no evidence for a bowel obstruction. There is minimal presacral infiltration. There is no ascites. There is no lymphadenopathy. Lumbar spine CT will be reported separate. Old left pubic ring fractures are noted. Old right inferior pubic rami fractures are present. IMPRESSION: 1. No acute process within the abdomen or pelvis on unenhanced exam. 2. Large hiatal hernia which contains a portion of the stomach and distal transverse colon. No bowel obstruction. 3. Small bilateral pleural effusions. Small pericardial effusion, unchanged s fozia CT of June 05, 2018. ACT 112: Negative or not required by law. Electronically signed by: Liam Navarro M.D. 01/23/2021 7:[address] 01/23/21 18:06 CT OF THE LUMBAR SPINE CLINICAL HISTORY: pain eval for fx COMPARISON STUDY: CT of the abdomen and pelvis June 05, 2018. TECHNIQUE: Helical axial images of the lumbar spine were obtained. Sagittal and coronal reconstructions were viewed. Automated exposure control was utilized for the study. A dose lowering technique was utilized adhering to the principles of ALARA. FINDINGS: There is mild S-shaped scoliosis of the lower thoracic and lumbar spine. There is mild anterolisthesis of L4 and L5 due to facet arthrosis. A mild compression deformity of the superior endplate of L2 is unchanged since CT of June 05, 2018. There is no acute lumbar spine fracture. Moderate multilevel degenerative disc disease and facet arthrosis is present. Central canal and neural foramen are suboptimally assessed by CT. Vertebral soft tissues are unremarkable. Sacroiliac joints are intact. IMPRESSION: 1. No acute lumbar spine fracture or subluxation. 2. No change in an old mild L2 compression deformity since CT of June 05, 2018. 3. Moderate multilevel degenerative changes within the lumbar spine. 4. Mild S-shaped scoliosis of the lower thoracic and lumbar spine and mild anterolisthesis of L4 and L5. ACT 112: Negative or not required by law. Electronically signed by: Liam Navarro M.D. 01/23/2021 7:18 PM Chest X-Ray 01/23/21 19:29 XR chest 1V portable CLINICAL HISTORY: low sats eval for PNA COMPARISON STUDY: Chest radiograph November 03, 2018. FINDINGS: A left subclavian pacer is in place. Moderate cardiomegaly is noted. There is a large hiatal hernia. There are small bilateral pleural effusions. There is no pneumothorax. Apparent right lung airspace opacity on the initial image is not present on the second image. This probably reflects layering pleural fluid. IMPRESSION: 1. Cardiomegaly. No evidence for overt pulmonary edema. 2. Small bilateral pleural effusions. 3. Large hiatal hernia. ACT 112: Negative or not required by law. Electronically signed by: Liam Navarro M.D. 01/23/2021 7:[address] head initial read: No intracranial hemorrhage, mass-effect or midline shift. There is no abnormal extra axial fluid collection. No evidence of acute infarct. Moderate periventricular white matter hypodensities are most consistent with chronic microangiopathy. The visualized paranasal sinuses and mastoid air cells are clear. No fracture. EKG as per my interpretation rate 110, A. fib, LAD, LAFB, no ischemia
[2021-01-23] MEDS ORDERED: ALBUMIN 25% 12.5 GM/50 ML VIAL IV STA (23:56)
[2021-01-24] MEDS ORDERED: POTASSIUM CHLORIDE CRTAB 20 MEQ TABCR PO STA (00:36)
[2021-01-24] MEDS ORDERED: PROMETHAZINE HCL 12.5 MG in SODIUM CHLORIDE 0.9% 50 ML IV PRN (00:36)
[2021-01-24] MEDS ORDERED: XOPENEX/ATROVENT 1.25mg/0.5MG NEB COMBO NEB PRN (00:58)
[2021-01-24] MEDS ORDERED: XOPENEX/ATROVENT 1.25mg/0.5MG NEB COMBO NEB STA (00:58)
[2021-01-24] MEDS ORDERED: IPRATROPIUM BROMIDE NEB SOLN 0.02% 2.5 ML VIAL INH PRN (01:00)
[2021-01-24] MEDS ORDERED: LEVALBUTEROL 1.25MG/0.5ML NEB INH PRN (01:00)
[2021-01-24] MEDS ORDERED: IPRATROPIUM BROMIDE NEB SOLN 0.02% 2.5 ML VIAL INH STA (01:03)
[2021-01-24] MEDS ORDERED: LEVALBUTEROL 1.25MG/0.5ML NEB INH STA (01:03)
[2021-01-24 01:06] LABS: Base Excess ABG 12.9 mEq/L (-9-1.8); HCO3 ABG 42 mmol/L (19-24); PCO2 ABG 78 mmHg (35-46); PO2 ABG 103 mmHg (80-95); pH ABG 7.35 (7.35-7.45)
[2021-01-24 01:10] LABS: Allen Test Pos (Pos)
[2021-01-24] MEDS: PANTOprazole 40 MG TAB PO SCH ×3 (01:58→20:45)
[2021-01-24] MEDS ORDERED: PANTOprazole 40 MG in SYRINGE 0 ML IV ONE (02:00)
[2021-01-24] MEDS: POTASSIUM CHLORIDE / WTR 10 MEQ/100 ML PLCT IV SCH ×4 (03:15→06:45)
[2021-01-24 04:32] LABS: Base Excess ABG 13.2 mEq/L (-9-1.8); HCO3 ABG 39 mmol/L (19-24); Oxygen Saturation ABG 93.8 % (90-95); PCO2 ABG 57 mmHg (35-46); PO2 ABG 64 mmHg (80-95); pH ABG 7.46 (7.35-7.45)
[2021-01-24 04:33] LABS: Allen Test Pos (Pos)
[2021-01-24] MEDS: METOPROLOL TARTRATE 1 MG/ML VIAL IV SCH ×2 (06:17→12:47)
[2021-01-24] MEDS: LEVOTHYROXINE SODIUM 50 MCG TABLET PO SCH (06:23)
[2021-01-24 07:02] LABS: Appearance Urine Cloudy (Clear); Bacteria Urine Automated 4+ (Negative); Bilirubin Urine Negative (Negative); Blood Urine Trace (Negative); Color Urine Dark Yellow; Epithelial Cell Urine Auto >30 /lpf (0-5); Glucose Urine UA Negative (Negative); Ketones Urine Negative (Negative); Leukocyte Esterase Urine Trace (Negative); Nitrite Urine Positive (Negative); Protein Urine Trace (Negative); Specific Gravity Urine 1.015 (1.000-1.030); Urobilinogen Urine Negative (Negative)
[2021-01-24] MEDS ORDERED: CEFEPIME 2,000 MG/20 ML VIAL IV STA (07:14)
[2021-01-24] MEDS ORDERED: CEFEPIME CONSULT ACTIVE ONE (07:14)
--- NOTE | 2021-01-24 07:22 | CT Scan Report ---
CT SCAN OF THE BRAIN WITHOUT IV CONTRAST CLINICAL HISTORY: Change in mental status. COMPARISON STUDY: CT of the brain dated 04/15/2012. TECHNIQUE: Unenhanced axial CT scan of the brain is performed from the vertex to the skull base. A do se lowering technique was utilized adhering to the principles of ALARA. CT DOSE: 537.48 mGy.cm FINDINGS: Brain parenchyma: There are age-related involutional changes noting moderate to advanced confluent s ubcortical and periventricular microangiopathic change. There is no hemorrhage, mass effect, or evide nce of acute territorial ischemia by CT criteria. Mariano-white matter differentiation is preserved. No extra-axial fluid collection is seen. Ventricles, sulci, cisterns: Prominent secondary to involutional change. Intracranial vasculature: There is atherosclerotic calcification of the cavernous carotid and vertebr al arteries. Calvarium: Unremarkable. Sinuses and mastoids: The visualized paranasal sinuses are clear. The mastoid air cells are well pneu matized. Orbits: The bony orbits are grossly intact. There are bilateral ocular lens implants. IMPRESSION: There is no hemorrhage, mass effect, or evidence of acute territorial ischemia by CT hanh burt. ACT 112: Negative or not required by law. Electronically signed by: Jarod Montejo M.D. 01/24/2021 7:21 AM
[2021-01-24 07:28] LABS: Estimated Average Glucose 148 mg/dl; Hemoglobin A1C 6.8 % (4.5-5.6)
[2021-01-24 08:15] LABS: Basophils # (auto) 0.01 K/uL (0-0.2); Basophils % (auto) 0.2 %; Eosinophils # (auto) 0.05 K/uL (0-0.5); Eosinophils % (auto) 0.9 %; Hematocrit (blood only) 37.9 % (37-47); Hemoglobin 11.1 g/dL (12.0-16.0); Lymphocytes # (auto) 0.68 K/uL (1.2-3.4); Lymphocytes % (auto) 12.2 %; Mean Corpuscular Hemoglobin 29.4 pg (25-34); Mean Corpuscular Hgb Conc 29.3 g/dL (32-36); Mean Corpuscular Volume 100.3 fL (80-100); Monocytes # (auto) 0.35 K/uL (0.11-0.59); Monocytes % (auto) 6.3 %; Neutrophils % (auto) 80.4 %; Platelet Count 130 K/uL (130-400); RDW Coefficient of Variation 15.5 % (11.5-14.5); RDW Standard Deviation 56.9 fL (36.4-46.3); Red Blood Count 3.78 M/uL (4.2-5.4); White Blood Count 5.59 K/uL (4.8-10.8)
[2021-01-24] MEDS ORDERED: CEFEPIME 2,000 MG in SYRINGE 7.5 ML IV ONE (08:15)
--- NOTE | 2021-01-24 08:17 | Ultrasound Report ---
US arterial duplex LE LT CLINICAL HISTORY: Absent left lower extremity pulses. COMPARISON STUDY: None. FINDINGS: Scattered calcified plaque within the left lower extremity arterial system. No elevated gely ocities to suggest stenosis. No evidence for arterial occlusion. There are low velocity biphasic wave forms throughout the majority of the left lower extremity arterial system suggestive of low cardiac o utput. IMPRESSION: No high-grade stenosis or occlusion identified within the left lower extremity arterial system. Low velocity waveforms within the left lower extremity suggestive of low cardiac output. ACT 112: Negative or not required by law. Electronically signed by: Tim Grover M.D. 01/24/2021 8:16 AM
[2021-01-24 08:30] LABS: Prothrombin Time 36.5 Seconds (9.0-12.0)
[2021-01-24 08:39] LABS: BUN Creatinine Ratio 18.1 (10-20); Calcium 9.3 mg/dl (8.5-10.1); Creatinine Clr Calc Pharmacy 25.8 ml/min; Est GFR (Non-African American) 32.8 ml/min; Potassium 4.1 mmol/L (3.5-5.1)
[2021-01-24] MEDS: LIOTHYRONINE SODIUM 5 MCG TAB PO SCH ×2 (08:50→20:44)
[2021-01-24] MEDS: ATORVASTATIN 20 MG TAB PO SCH (08:50)
[2021-01-24] MEDS: DULoxetine HCL 20 MG CAP PO SCH (08:50)
[2021-01-24] MEDS ORDERED: METOPROLOL TARTRATE 25 MG TAB PO SCH ×2 (09:00→12:30)
[2021-01-24] MEDS ORDERED: MICONAZOLE NITRATE POWDER 43 GM EXT PRN (13:27)
--- NOTE | 2021-01-24 17:22 | Hospitalist Progress Note ---
Date of Service January 24, 2021 Assessment & Plan (1) Encephalopathy: Plan: Acute respiratory failure with hypercapnia treated with BiPAP Possible hypercapnic respiratory failure, hx hypoxemic respiratory failure secondary to pulmonary hypertension on home O2 (Possible undiagnosed OHS) Clinically much better and saturating well with 0 to 2 L of nasal oxygen Acute metabolic and colopathy Multifactorial-respiratory failure with hypercapnia, possible UTI Clinically better Back pain secondary to muscular strain Abdominal pain possibly from hiatal hernia, possible uncontrolled GERD Denies any abdominal pain Atrial fibrillation, rate slightly elevated secondary to illness hx SSS sp PPM on Coumadin INR slightly supratherapeutic at 3.3 INR is 4.0 today-hold Coumadin chronic systolic heart failure EF 45-50 TTE 2018 Equivocal volume status Chronic kidney disease stage III CRI, creatinine at baseline Chronic anemia, hemoglobin at baseline Hypokalemia secondary diuretic Rx Prediabetes, hemoglobin A1c of 6.3 in November 2019 Hypothyroidism, euthyroid as of today's TSH DVT prophylaxis. Coumadin INR goal between 2 and 3 Full code Patient's requesting for updates from providers. Mr. Adebayo Casas, contact #[phone]. Admission and Anticipated Discharge Date Admission Date: January 23, 2021 Subjective 01/24/2021 The patient was seen and examined did not medical telemetry unit She has been feeling much better She uses oxygen at home as needed And she has been minimally ambulatory at home Has any significant symptoms Review of Systems Review of Systems: All systems reviewed and are unremarkable except as noted below Neurologic: Alert, awake and oriented. Has been doing minimally mobile at home Physical Exam Physical Exam: Lying in bed comfortably Constitutional: well developed, well nourished and + ill appearing Eyes: PERRL, conjunctivae normal, anicteric sclerae ENMT: external ear and nose normal, oropharynx normal Neck: trachea midline, no thyromegaly Respiratory: no respiratory distress Auscultation: + diminished lung sounds and + crackles (Minimal bibasilar crackles) Cardiovascular: Rate/Rhythm: regular rate and regular rhythm Heart Sounds: normal S1 and normal S2; no murmur (2/6 diastolic murmur over precordium) Musculoskeletal: Alert, awake and oriented x3 Neurologic: Awake and oriented x3 Results & Data Results & Data ([facility]) Vital Signs (Past 12 Hours) Vital Signs Temp Pulse Pulse Resp BP Pulse Ox 01/24/21 15:22 94 H 08/25/21 14:45 36.8 C 79 22 127/83 90 01/24/21 09:00 98 01/24/21 08:20 36.4 C L 97 H 24 01/24/21 07:45 84 01/24/21 07:17 91 H 19 93 01/24/21 06:16 87 154/81 H
[2021-01-24] MEDS: METOPROLOL TARTRATE 25 MG TAB PO SCH (20:43)
[2021-01-25] MEDS ORDERED: LEVOTHYROXINE SODIUM 25 MCG TABLET PO SCH (06:30)
[2021-01-25] MEDS: DULoxetine HCL 20 MG CAP PO SCH (08:13)
[2021-01-25] MEDS: METOPROLOL TARTRATE 25 MG TAB PO SCH ×2 (08:13→20:34)
[2021-01-25] MEDS: ATORVASTATIN 20 MG TAB PO SCH (08:13)
[2021-01-25] MEDS: PANTOprazole 40 MG TAB PO SCH ×2 (08:13→20:33)
[2021-01-25] MEDS: LIOTHYRONINE SODIUM 5 MCG TAB PO SCH ×2 (08:14→20:35)
[2021-01-25] MEDS: cefTRIAXone SODIUM 2,000 MG in DEXTROSE 5% 50 ML IV SCH (08:21)
[2021-01-25 09:18] LABS: INR 3.9 (0.9-1.1); Prothrombin Time 35.3 Seconds (9.0-12.0)
[2021-01-25 09:29] LABS: BUN Creatinine Ratio 16.6 (10-20); Basophils # (auto) 0.01 K/uL (0-0.2); Basophils % (auto) 0.1 %; Calcium 9.4 mg/dl (8.5-10.1); Creatinine Clr Calc Pharmacy 21.6 ml/min; Eosinophils # (auto) 0.08 K/uL (0-0.5); Eosinophils % (auto) 0.9 %; Est GFR (African American) 30.5 ml/min; Est GFR (Non-African American) 26.3 ml/min; Hematocrit (blood only) 38.3 % (37-47); Hemoglobin 10.9 g/dL (12.0-16.0); Immature Granulocytes # (auto) 0.01 K/uL (0.00-0.02); Immature Granulocytes % (auto) 0.1 %; Lymphocytes # (auto) 0.81 K/uL (1.2-3.4); Lymphocytes % (auto) 9.4 %; Magnesium 2.5 mg/dl (1.8-2.4); Mean Corpuscular Hemoglobin 29.1 pg (25-34); Mean Corpuscular Hgb Conc 28.5 g/dL (32-36); Mean Corpuscular Volume 102.4 fL (80-100); Monocytes # (auto) 0.66 K/uL (0.11-0.59); Monocytes % (auto) 7.6 %; Neutrophils # (auto) 7.09 K/uL (1.4-6.5); Neutrophils % (auto) 81.9 %; Phosphorus 3.6 mg/dl (2.5-4.9); Platelet Count 167 K/uL (130-400); Potassium 4.5 mmol/L (3.5-5.1); Red Blood Count 3.74 M/uL (4.2-5.4); White Blood Count 8.66 K/uL (4.8-10.8)
--- NOTE | 2021-01-25 18:09 | Hospitalist Progress Note ---
Date of Service January 25, 2021 Assessment & Plan (1) Encephalopathy: Plan: Acute respiratory failure with hypercapnia treated with BiPAP Possible hypercapnic respiratory failure, hx hypoxemic respiratory failure secondary to pulmonary hypertension on home O2 (Possible undiagnosed OHS) Clinically much better and saturating well with 0 to 2 L of nasal oxygen Advised to continue oxygen all the time Acute metabolic encephalopathy Multifactorial-respiratory failure with hypercapnia, possible UTI Clinically better and back to her baseline Back pain secondary to muscular strain Abdominal pain possibly from hiatal hernia, possible uncontrolled GERD Denies any abdominal pain Atrial fibrillation, rate slightly elevated secondary to illness hx SSS 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 Coumadin INR goal between 2 and 3 Full code Patient's requesting for updates from providers. Mr. Adebayo Casas, contact #[phone].-Discussed with the Admission and Anticipated Discharge Date Admission Date: January 23, 2021 Subjective 01/24/2021 The patient was seen and examined did not medical telemetry unit She has been feeling much better She uses oxygen at home as needed And she has been minimally ambulatory at home Has any significant symptoms 01/25/2021 The patient was seen and examined in medical telemetry unit She is out of bed when a chair without any acute symptoms Review of Systems Review of Systems: All systems reviewed and are unremarkable except as noted below Neurologic: Alert, awake and oriented. Has been doing minimally mobile at home Physical Exam Physical Exam: Lying in bed comfortably Constitutional: well developed, well nourished and + ill appearing Eyes: PERRL, conjunctivae normal, anicteric sclerae ENMT: external ear and nose normal, oropharynx normal Neck: trachea midline, no thyromegaly Respiratory: no respiratory distress Auscultation: + diminished lung sounds and + crackles (Minimal bibasilar crackles) Cardiovascular: Rate/Rhythm: regular rate and regular rhythm Heart Sounds: normal S1 and normal S2; no murmur (2/6 diastolic murmur over precordium) Gastrointestinal (Abdomen): normal bowel sounds, soft, nontender, no hepatosplenomegaly Musculoskeletal: No acute arthritis involving any joint Neurologic: Alert, awake and oriented x3. Generally weak and lethargic Lymphatic: no cervical or axillary lymphadenopathy Results & Data Results & Data ([facility]) Vital Signs (Past 12 Hours) Vital Signs Temp Pulse Pulse Pulse Resp BP Pulse Ox 01/25/21 15:47 99 H 01/25/21 14:46 36.8 C 89 20 122/79 93 01/25/21 08:00 104 H 01/25/21 07:33 34.2 C L 100 H 25 H 128/78 97 Laboratory Results Short CBC 01/25/21 Range/Units 08:33 WBC 8.66 (4.8-10.8) K/uL Hgb 10.9 L (12.0-16.0) g/dL Hct 38.3 (37-47) % Plt Count 167 (130-400) K/uL BMP 01/25/21 08:33 Sodium 139 Potassium 4.5 Chloride 99 Carbon Dioxide 37 H BUN 29 H Creatinine 1.73 H Glucose 195 H Calcium 9.4 Medications Administered Current Inpatient Medications Acetaminophen (Acetaminophen 325 Mg Tab) 650 mg PO Q6H PRN PRN Reason: Fever/pain Stop: 02/22/21 20:41 Atorvastatin Calcium (Atorvastatin 20 Mg Tab) 20 mg PO DAILY [facility] Stop: 02/23/21 08:59 Last Admin: 01/25/21 08:13 Dose: 20 mg Documented by: Duloxetine HCl (Duloxetine Hcl 20 Mg Cap) 20 mg PO DAILY [facility] Stop: 02/23/21 08:59 Last Admin: 01/25/21 08:13 Dose: 20 mg Documented by: Promethazine HCl 12.5 mg/ (Sodium Chloride) 50.5 mls @ 202 mls/hr IV Q6H PRN PRN Reason: Nausea And Vomiting Stop: 02/23/21 00:35 Ceftriaxone Sodium 2,000 mg/ (Dextrose) 70 mls @ 140 mls/hr IV Q24H [facility]; Protocol Stop: 02/04/21 07:59 Last Infusion: 01/25/21 08:51 Dose: Infused Documented by: Ipratropium Elfrida (Ipratropium Elfrida Neb Soln 0.02% 2.5 Ml Vial) 0.5 mg INH Q4H PRN PRN Reason: SOB/WHEEZING Stop: 02/23/21 00:59 Levalbuterol HCl (Levalbuterol 1.25mg/0.5ml Neb) 1.25 mg INH Q4H PRN PRN Reason: SOB/WHEEZING Stop: 02/23/21 00:59 Levothyroxine Sodium (Levothyroxine Sodium 50 Mcg Tablet) 50 mcg PO [email or web address] [facility] Stop: 02/23/21 06:29 Last Admin: 01/24/21 06:23 Dose: Not Given Documented by: Levothyroxine Sodium (Levothyroxine Sodium 25 Mcg Tablet) 25 mcg PO [email or web address] [facility] Stop: 02/24/21 06:29 Last Admin: 01/25/21 06:33 Dose: 25 mcg Documented by: Liothyronine Sodium (Liothyronine Sodium 5 Mcg Tab) 5 mcg PO BID [facility] Stop: 02/23/21 08:59 Last Admin: 01/25/21 08:14 Dose: 5 mcg Documented by: Metoprolol Tartrate (Metoprolol Tartrate 25 Mg Tab) 75 mg PO BID [facility] Stop: 02/23/21 20:59 Last Admin: 01/25/21 08:13 Dose: 75 mg Documented by: Miconazole Nitrate (Miconazole Nitrate Powder 43 Gm) 1 appln EXT PRN PRN PRN Reason: Affected Skin Folds Stop: 02/23/21 13:26 Pantoprazole Sodium (Pantoprazole 40 Mg Tab) 40 mg PO BID [facility] Stop: 02/23/21 00:35 Last Admin: 01/25/21 08:13 Dose: 40 mg Documented by:
[2021-01-26] MEDS ORDERED: METOPROLOL TARTRATE 25 MG TAB PO SCH (05:30)
[2021-01-26] MEDS: LEVOTHYROXINE SODIUM 50 MCG TABLET PO SCH (05:53)
[2021-01-26 08:14] LABS: INR 2.6 (0.9-1.1); Prothrombin Time 24.4 Seconds (9.0-12.0)
[2021-01-26 08:16] LABS: Hematocrit (blood only) 37.1 % (37-47); Hemoglobin 10.7 g/dL (12.0-16.0); Mean Corpuscular Hemoglobin 29.2 pg (25-34); Mean Corpuscular Hgb Conc 28.8 g/dL (32-36); Mean Corpuscular Volume 101.4 fL (80-100); Mean Platelet Volume 11.3 fL (7.4-10.4); Platelet Count 150 K/uL (130-400); RDW Coefficient of Variation 15.5 % (11.5-14.5); RDW Standard Deviation 57.2 fL (36.4-46.3); Red Blood Count 3.66 M/uL (4.2-5.4); White Blood Count 6.42 K/uL (4.8-10.8)
[2021-01-26] MEDS: cefTRIAXone SODIUM 2,000 MG in DEXTROSE 5% 50 ML IV SCH (08:19)
[2021-01-26] MEDS: ATORVASTATIN 20 MG TAB PO SCH (08:23)
[2021-01-26] MEDS: PANTOprazole 40 MG TAB PO SCH (08:23)
[2021-01-26] MEDS: LIOTHYRONINE SODIUM 5 MCG TAB PO SCH (08:23)
[2021-01-26] MEDS: DULoxetine HCL 20 MG CAP PO SCH (08:23)
[2021-01-26 08:32] LABS: BUN Creatinine Ratio 18.8 (10-20); Calcium 9.5 mg/dl (8.5-10.1); Creatinine Clr Calc Pharmacy 25.7 ml/min; Est GFR (African American) 37.1 ml/min; Magnesium 2.1 mg/dl (1.8-2.4); Potassium 4.4 mmol/L (3.5-5.1)
[2021-01-26 09:26] LABS: Basophils # (auto) 0.02 K/uL (0-0.2); Basophils % (auto) 0.3 %; Eosinophils # (auto) 0.09 K/uL (0-0.5); Eosinophils % (auto) 1.4 %; Immature Granulocytes # (auto) 0.02 K/uL (0.00-0.02); Immature Granulocytes % (auto) 0.3 %; Lymphocytes # (auto) 0.62 K/uL (1.2-3.4); Lymphocytes % (auto) 9.7 %; Monocytes # (auto) 0.46 K/uL (0.11-0.59); Monocytes % (auto) 7.2 %; Neutrophils # (auto) 5.21 K/uL (1.4-6.5); Neutrophils % (auto) 81.1 %
[2021-01-26 11:30] VITALS: PULSE 106; TEMP 94.3; O2SAT 97
--- NOTE | 2021-01-26 12:53 | Hospitalist Progress Note ---
Date of Service January 26, 2021 Assessment & Plan (1) Encephalopathy: Plan: Acute respiratory failure with hypercapnia treated with BiPAP Possible hypercapnic respiratory failure, hx hypoxemic respiratory failure secondary to pulmonary hypertension on home O2 (Possible undiagnosed OHS) Clinically much better and saturating well with 0 to 2 L of nasal oxygen Advised to continue oxygen all the time Acute metabolic encephalopathy-resolved Multifactorial-respiratory failure with hypercapnia, possible UTI Clinically better and back to her baseline Acute E. 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 Coumadin INR goal between 2 and 3 Full code Patient's requesting for updates from providers. Mr. Adebayo Casas, contact #[phone].-Discussed with the Discussed with the son and the She will be discharged home this afternoon Admission and Anticipated Discharge Date Admission Date: January 23, 2021 Subjective 01/24/2021 The patient was seen and examined did not medical telemetry unit She has been feeling much better She uses oxygen at home as needed And she has been minimally ambulatory at home Has any significant symptoms 01/25/2021 The patient was seen and examined in medical telemetry unit She is out of bed when a chair without any acute symptoms She will be discharged home this afternoon Review of Systems Review of Systems: All systems reviewed and are unremarkable except as noted below Neurologic: Alert, awake and oriented. Has been doing minimally mobile at home Physical Exam Physical Exam: Lying in bed comfortably Constitutional: well developed, well nourished and + ill appearing Eyes: PERRL, conjunctivae normal, anicteric sclerae ENMT: external ear and nose normal, oropharynx normal Neck: trachea midline, no thyromegaly Respiratory: no respiratory distress Auscultation: + diminished lung sounds and + crackles (Minimal bibasilar crackles) Cardiovascular: Rate/Rhythm: regular rate and regular rhythm Heart Sounds: normal S1 and normal S2; no murmur (2/6 diastolic murmur over precordium) Gastrointestinal (Abdomen): normal bowel sounds, soft, nontender, no hepatosplenomegaly Musculoskeletal: No acute arthritis in any joint Neurologic: Alert and awake. Generally weak. Moves all limbs equally Lymphatic: no cervical or axillary lymphadenopathy Results & Data Results & Data ([facility]) Vital Signs (Past 12 Hours) Vital Signs Temp Pulse Pulse Pulse Resp BP BP 01/26/21 11:28 34.6 C L 106 H 23 138/87 01/26/21 07:38 36.6 C 102 H 24 124/74 01/26/21 04:00 37.0 C 122 H 20 134/88 01/26/21 03:54 99 H Pulse Ox 01/26/21 11:28 97 01/26/21 07:38 100 01/26/21 04:00 98 01/26/21 03:54 Laboratory Results Short CBC 01/26/21 Range/Units 07:37 WBC 6.42 (4.8-10.8) K/uL Hgb 10.7 L (12.0-16.0) g/dL Hct 37.1 (37-47) % Plt Count 150 (130-400) K/uL BMP 01/26/21 07:37 Sodium 141 Potassium 4.4 Chloride 99 Carbon Dioxide 37 H BUN 28 H Creatinine 1.47 H Glucose 133 H Calcium 9.5 Medications Administered Current Inpatient Medications Acetaminophen (Acetaminophen 325 Mg Tab) 650 mg PO Q6H PRN PRN Reason: Fever/pain Stop: 02/22/21 20:41 Atorvastatin Calcium (Atorvastatin 20 Mg Tab) 20 mg PO DAILY [facility] Stop: 02/23/21 08:59 Last Admin: 01/26/21 08:23 Dose: 20 mg Documented by: Duloxetine HCl (Duloxetine Hcl 20 Mg Cap) 20 mg PO DAILY [facility] Stop: 02/23/21 08:59 Last Admin: 01/26/21 08:23 Dose: 20 mg Documented by: Promethazine HCl 12.5 mg/ (Sodium Chloride) 50.5 mls @ 202 mls/hr IV Q6H PRN PRN Reason: Nausea And Vomiting Stop: 02/23/21 00:35 Ceftriaxone Sodium 2,000 mg/ (Dextrose) 70 mls @ 140 mls/hr IV Q24H [facility]; Protocol Stop: 02/04/21 07:59 Last Infusion: 01/26/21 09:31 Dose: Infused Documented by: Ipratropium Lyons (Ipratropium Lyons Neb Soln 0.02% 2.5 Ml Vial) 0.5 mg INH Q4H PRN PRN Reason: SOB/WHEEZING Stop: 02/23/21 00:59 Levalbuterol HCl (Levalbuterol 1.25mg/0.5ml Neb) 1.25 mg INH Q4H PRN PRN Reason: SOB/WHEEZING Stop: 02/23/21 00:59 Levothyroxine Sodium (Levothyroxine Sodium 50 Mcg Tablet) 50 mcg PO MoWeFr@30 [facility] Stop: 02/23/21 06:29 Last Admin: 01/26/21 05:53 Dose: 50 mcg Documented by: Levothyroxine Sodium (Levothyroxine Sodium 25 Mcg Tablet) 25 mcg PO [id number]@0630 [facility] Stop: 02/24/21 06:29 Last Admin: 01/25/21 06:33 Dose: 25 mcg Documented by: Liothyronine Sodium (Liothyronine Sodium 5 Mcg Tab) 5 mcg PO BID [facility] Stop: 02/23/21 08:59 Last Admin: 01/26/21 08:23 Dose: 5 mcg Documented by: Metoprolol Tartrate (Metoprolol Tartrate 25 Mg Tab) 75 mg PO BID [facility] Stop: 02/25/21 05:29 Last Admin: 01/26/21 05:54 Dose: 75 mg Documented by: Miconazole Nitrate (Miconazole Nitrate Powder 43 Gm) 1 appln EXT PRN PRN PRN Reason: Affected Skin Folds Stop: 02/23/21 13:26 Pantoprazole Sodium (Pantoprazole 40 Mg Tab) 40 mg PO BID [facility] Stop: 02/23/21 00:35 Last Admin: 01/26/21 08:23 Dose: 40 mg Documented by:
[2021-01-26 13:46] VITALS: BP 134/88
--- NOTE | 2021-01-26 15:53 | Electrocardiogram Report ---
Test Reason : Blood Pressure : / mmHG Vent. Rate : 109 BPM Atrial Rate : 108 BPM P-R Int : 000 ms QRS Dur : 108 ms QT Int : 308 ms P-R-T Axes : 000 -59 086 degrees QTc Int : 414 ms Atrial fibrillation with rapid ventricular response Left anterior fascicular block Abnormal ECG When compared with ECG of 04-JUN-2018 23:42, Nonspecific T wave abnormality, improved in Lateral leads Confirmed by Deo Buck ([id number]) on 01/26/2021 3:53:34 PM Referred By: Delia Marquez Confirmed By:Deo Buck
--- NOTE | 2021-02-03 09:19 | Discharge Summary ---
Date of Service February 03, 2021 Admission HPI Per Admitting Provider History obtained from patient, family, and records. History limited from patient secondary to episodic lethargy. Medical history significant for SSS sp PPM on Coumadin, chronic systolic heart failure EF 45 to 50%, TTE 2019, hypertension, hyperlipidemia, GERD, mood disorder, CRI baseline creatinine 1.7, chronic anemia (baseline hemoglobin at 11), hypothyroidism. Last confinement 2019 for epigastric pain. Imaging equivocal for cholecystitis. Abdominal pain resolved during confinement. Patient twisted her back yesterday while trying to get out of her wheelchair. Achy low back pain without lower extremity weakness. No fever, no chills. No chest pain, no headache. Patient also complaining of episodic epigastric pain for a few weeks now. Usual exertional shortness of breath with dry cough symptoms. No fluid retention as per . No known recent COVID-19 contacts. Patient falls asleep at home from time to time as per . Patient directed to the ER for evaluation by PCP. Episodic lethargy noted at the ER. 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 Admission Exam Per Admitting Provider Physical Exam: GENERAL: Lethargic, no respiratory distress, obese, SKIN: Pallor, warm HEENT: Pale palpebral conjunctivae, no ptosis, dry buccal mucosa, nasal cannula in place NECK : Supple, short neck, no tenderness CHEST : Decreased breath sounds , no tenderness HEART : Irregular, tachycardic, systolic murmur ABDOMEN: Some distention, epigastric tenderness BACK : Low back tenderness, negative SLR EXTREMITIES : min LE swelling, no LE tenderness, no other conspicuous deformities noted NEUROLOGIC : Lethargic, slightly hard of hearing, no facial asymmetry, occasional rest tremors Principal Diagnosis Acute metabolic and colopathy, acute UTI, respiratory failure with hypercapnia treated with BiPAP, chronic oxygen dependent Discharge Exam Constitutional well developed, well nourished and + ill appearing Eyes PERRL, conjunctivae normal, anicteric sclerae ENMT external ear and nose normal, oropharynx normal Neck trachea midline, no thyromegaly Respiratory no respiratory distress Auscultation: + diminished lung sounds and + crackles (Minimal bibasilar crackles) Cardiovascular Rate/Rhythm: regular rate and regular rhythm Heart Sounds: normal S1 and normal S2; no murmur (2/6 diastolic murmur over precordium) Gastrointestinal (Abdomen) normal bowel sounds, soft, nontender, no hepatosplenomegaly Lymphatic no cervical or axillary lymphadenopathy Discharge Data Allergies Allergy/AdvReac Type Severity Reaction Status Date / Time Sulfa (Sulfonamide Allergy Mild HIVES Verified 01/23/21 18:24 Antibiotics) Consultations 01/23/21 20:30 ED Decision to Admit Stat Ordered Studies 01/23/21 18:06 CT abd pelvis wo con Stat CT lumbar spine wo con Stat 01/24/21 01:21 US arterial duplex LE LT Urgent 01/24/21 01:59 CT head/brain wo con Urgent Hospital Course (1) Encephalopathy: Acute respiratory failure with hypercapnia treated with BiPAP Possible hypercapnic respiratory failure, hx hypoxemic respiratory failure secondary to pulmonary hypertension on home O2 (Possible undiagnosed OHS) Clinically much better and saturating well with 0 to 2 L of nasal oxygen Advised to continue oxygen all the time Acute metabolic encephalopathy-resolved Multifactorial-respiratory failure with hypercapnia, possible UTI Clinically better and back to her baseline Acute E. 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 Coumadin INR goal between 2 and 3 Full code Patient's requesting for updates from providers. . Adebayo Casas, contact #[phone].-Discussed with the Discussed with the son and the She will be discharged home this afternoon Total Time Total Time Spent Total Time Spent (In Minutes): 35 minutes Discharge Plan Discharge Items Patient Disposition: Home - Self-Care Reason For Visit: RESP FAILURE, HTN URG Discharge Diagnosis: Acute metabolic and colopathy, acute UTI, respiratory failure with hypercapnia treated with BiPAP, chronic oxygen dependent Condition on Discharge: Fair Activity: As commented below Activity Comment: Please take extra precautions to avoid fall Non-emergency contact: Primary Care Provider Call non-emergency contact if: you have any medication questions and your symptoms worsen Follow-up/Referrals: Delia Marquez DO [Primary Care Provider] - (Date & Time 02/01/2021 1:40 [facility] Kris Conde, [facility] ) Diet: Heart Healthy Diet Texture: Dental soft (bite-sized) Addtl Attending Provider Instructions: Please take extra precautions to avoid fall Finish the course of antibiotic Keep taking oxygen all the time Pending Studies at Discharge: No Stand-Alone Forms: My [facility] [place], Smoking Cessation Medications and DC Order Prescriptions: Continued furosemide 40 mg Tablet 40 mg PO BID RF: 0 atorvastatin 20 mg Tablet 20 mg PO DAILY RF: 0 calcium carbonate [Calcium 600] 600 mg calcium (1,500 mg) Tablet 600 mg PO DAILY RF: 0 metoprolol tartrate 50 mg Tablet 75 mg PO BID RF: 0 omeprazole 20 mg Tablet,Delayed Release (Dr/Ec) 20 mg PO DAILY RF: 0 cholecalciferol (vitamin D3) [Vitamin D3] 2,000 unit Tablet 2,000 unit PO DAILY RF: 0 liothyronine 5 mcg Tablet 5 mcg PO BID RF: 0 levothyroxine 25 mcg Tablet 50 mcg PO 3XWK RF: 0 levothyroxine 25 mcg Tablet 25 mcg PO 4XWK RF: 0 levalbuterol tartrate 45 mcg/actuation HFA aerosol inhaler 1 puff INHALATION UD RF: 0 duloxetine 20 mg capsule,delayed release(DR/EC) 20 mg PO DAILY RF: 0 warfarin [Jantoven] 2.5 mg tablet 2.5 mg PO UD RF: 0 Discharge Orders: Discharge Order (Routine); Ordered 01/26/21 Ordered By: Marcos Beebe/Other Patient Handouts: A1C Admission Data Admit Date/Time: 01/23/21 22:10 Attending Provider: Marcos Canchola Admit Provider: Sacha Akhtar Primary Care Provider: Delia Marquez Other Providers: Sacha Akhtar Other Interventions: Discharge Summary Assessment (RN) Last Done: 01/26/21 13:41
== END 2021-01-26 15:56 | disposition home or self-care (01) | DRG 189 ==
LOC: ED 17:02 → 2W 22:10
DX: Z79.890 Hormone replacement therapy; I49.5 Sick sinus syndrome; B96.20 Unspecified Escherichia coli [E. coli] as the cause of diseases classified elsewhere; S39.012A Strain of muscle, fascia and tendon of lower back, initial encounter; X58.XXXA Exposure to other specified factors, initial encounter; Z88.2 Allergy status to sulfonamides; I50.22 Chronic systolic (congestive) heart failure; G93.41 Metabolic encephalopathy; N39.0 Urinary tract infection, site not specified; Z99.81 Dependence on supplemental oxygen; Z95.0 Presence of cardiac pacemaker; R79.1 Abnormal coagulation profile; E87.6 Hypokalemia; X50.9XXA Other and unspecified overexertion or strenuous movements or postures, initial encounter; K21.9 Gastro-esophageal reflux disease without esophagitis; E03.9 Hypothyroidism, unspecified; J96.02 Acute respiratory failure with hypercapnia; E78.5 Hyperlipidemia, unspecified; Z68.34 Body mass index [BMI] 34.0-34.9, adult; I27.20 Pulmonary hypertension, unspecified; Y99.8 Other external cause status; Z83.3 Family history of diabetes mellitus; N18.30 Chronic kidney disease, stage 3 unspecified; I48.91 Unspecified atrial fibrillation; Z79.01 Long term (current) use of anticoagulants; Z79.899 Other long term (current) drug therapy; R73.03 Prediabetes; E66.2 Morbid (severe) obesity with alveolar hypoventilation; K44.9 Diaphragmatic hernia without obstruction or gangrene; T50.2X5A Adverse effect of carbonic-anhydrase inhibitors, benzothiadiazides and other diuretics, initial encounter; I13.0 Hypertensive heart and chronic kidney disease with heart failure and stage 1 through stage 4 chronic kidney disease, or unspecified chronic kidney disease